=== PATIENT | female | born 1950 | race African-American/Black ===

== ENCOUNTER 2017-09-06 17:25 | Inpatient (IN) | payer MEDICARE, MEDICAID ==
[2017-09-06 18:31] LABS: #Eosinphils 0.1 thou/uL (0.0-0.7); #Lymphocytes 0.8 thou/uL (1.20-3.40); #Monocytes 0.3 thou/uL (0.11-0.59); #Neutrophils 0.9 thou/uL (1.40-6.50); %Basophils 1.2 % (0.0-1.0); %Eosinophils 3.2 % (0.0-10.0); %Lymphocytes 38.2 % (21.0-51.0); %Monocytes 12.4 % (0.0-10.0); Hematocrit 33.3 % (36.0-47.0); Mean Platelet Volume 14.2 fL (7.4-10.4); Red Blood Cell (RBC) Count 4.11 mill/uL (4.20-5.40)
[2017-09-06 18:36] LABS: ALT (SGPT) 46 U/L (8-55); AST (SGOT) 69 U/L (5-34); Alkaline Phosphatase 240 U/L (40-150); Anion Gap 13 mmol/L (10-20); BUN (Urea Nitrogen) 60 mg/dL (9.8-20.1); Bilirubin, Total 0.5 mg/dL (0.2-1.2); CK (CPK) 82 U/L (29-168); Calc. Creatinine Clearance 0 mL/min (70-130); Calcium 9.8 mg/dL (7.8-10.44); Carbon Dioxide 25 mmol/L (23-31); Chloride 113 mmol/L (98-107); Estimated GFR-MDRD 14; Globulin 4.1 g/dL (2.4-3.5); Protein, Total 7.3 g/dL (6.0-8.3)
[2017-09-06 18:39] LABS: Troponin I Less than 0.010 ng/mL (< 0.028)
[2017-09-06 18:42] LABS: Anisocytosis MODERATE=16-30 cells (100X) (0-5/hpf); Elliptocytes SLIGHT = 2-5 cells (100X) (0-1/hpf); Hypochromia SLIGHT = 6-15 cells (100X) (0-5/hpf); Ovalocytes SLIGHT = 2-5 cells (100X) (0-1/hpf); Poikilocytosis SLIGHT = 6-15 cells (100X) (0-5/hpf); Polychromasia SLIGHT = 2-3 cells (100X) (0-2/hpf); Schistocytes SLIGHT = 2-5 cells (100X) (0-1/hpf); Target Cells MODERATE= 6-15 cells (100X) (0-1/hpf); Tear Drops SLIGHT = 2-5 cells (100X) (0-1/hpf)
--- NOTE | 2017-09-06 18:46 | CT ---
HEAD CT NONCONTRAST 09/06/17 INDICATION: Fall with head injury. FINDINGS: There is no evidence of intracranial hemorrhage, mass effect or midline shift. There is a frontal sca lp hematoma, moderate in volume. Comparison made to 09/14/15 exam. IMPRESSION: No acute intracranial hemorrhage or mass effect. Prominent left frontal scalp hematoma. POS: [facility]
--- NOTE | 2017-09-06 18:49 | CT ---
CERVICAL SPINE CT NONCONTRAST 09/06/17 INDICATION: Fall with neck injury and pain. FINDINGS: The craniocervical junction is intact. There is no evidence of acute traumatic subluxation or izaiah katelynn fracture. There is reversal of the normal cervical curvature with kyphosis centered at the mid t o lower cervical spine. There is the appearance of a segmentation anomaly at C5-6. No acute facet mal alignment or significant retropulsion of bone into the vertebral canal. IMPRESSION: No acute osseous abnormality of the cervical spine. There is multilevel degenerative change and chronic appearing findings within the cervical spine. Incidental mild ground glass opacity of the anterior right apex, of uncertain significance on the bas is of this exam. Correlate clinically. POS: [facility]
[2017-09-06 19:28] LABS: Lactic Acid - Sepsis 2.5 mmol/L (0.5-2.2)
--- NOTE | 2017-09-06 19:47 | RAD ---
RADIOGRAPH CHEST 1 VIEW: 09/06/17 HISTORY: 67-year-old female with altered mental status and generalized weakness. FINDINGS: There is cardiomegaly. The thoracic aorta is tortuous and ectatic. There is no evidence of air space density, pulmonary edema, or pneumothorax. The lateral costophrenic angles are sharp. IMPRESSION: 1) No acute pulmonary findings. 2) Cardiomegaly without congestive heart failure. 3) Ectasia of thoracic aorta. jerrell [] POS: [facility]
[2017-09-06 21:52] LABS: Troponin I Less than 0.010 ng/mL (< 0.028)
[2017-09-06] MEDS ORDERED: Acetaminophen 325 MG TAB PO PRN (22:20)
[2017-09-06] MEDS ORDERED: Ondansetron ODT 4 MG TAB SL PRN (22:20)
[2017-09-06] MEDS ORDERED: Ondansetron HCl/PF 4 MG/2 ML Vial IVP PRN (22:20)
[2017-09-06] MEDS ORDERED: Sodium Chloride 0.9% 1,000 ML IV SCH (22:20)
[2017-09-06 23:25] LABS: Oxyhemoglobin 95.5 % (94.0-97.0); Sodium 149 mmol/L (135-148)
[2017-09-06 23:26] LABS: Mode RA; Modified Allen's Test POSITIVE; Vent NO
[2017-09-06] MEDS ORDERED: Sodium Chloride 0.9% 500 ML IVPB SCH (23:30)
[2017-09-06] MEDS ORDERED: MEROPENEM 1 GM/50 ML 1 GM in Premix Bag 1 BAG IVPB SCH (23:59)
[2017-09-07] MEDS: Vancomycin HCl 1 GM in Premix Bag 1 BAG IVPB SCH ×2
[2017-09-07 00:12] LABS: Troponin I 0.011 ng/mL (< 0.028)
[2017-09-07] MEDS ORDERED: Hetastarch 6% 500 ML 500 ML IVPB SCH (00:30)
--- NOTE | 2017-09-07 00:52 | PDOC.EVN ---
Event Note - Event Note Event Note: [id number] H&P Dictated 1. Sepsis 2. Hypotension 3. Hepatic encephalopathy 4. LYNDA + CKD stage 3 4. Hyperkalemia plan: see orders
[2017-09-07] MEDS: MEROPENEM 1 GM/50 ML 1 GM in Premix Bag 1 BAG IVPB SCH ×2 (03:23→15:08)
[2017-09-07 05:11] LABS: Anion Gap 9 mmol/L (10-20); BUN (Urea Nitrogen) 60 mg/dL (9.8-20.1); Calc. Creatinine Clearance 23 mL/min (70-130); Calcium 8.5 mg/dL (7.8-10.44); Carbon Dioxide 25 mmol/L (23-31); Chloride 120 mmol/L (98-107); Estimated GFR-MDRD 15
[2017-09-07 05:17] LABS: Troponin I Less than 0.010 ng/mL (< 0.028)
[2017-09-07 05:43] LABS: Band 20 % (5-11); Hematocrit 24.4 % (36.0-47.0); Hypochromia SLIGHT = 6-15 cells (100X) (0-5/hpf); Mean Platelet Volume 11.5 fL (7.4-10.4); Neutrophil 52 % (42-75); Red Blood Cell (RBC) Count 3.01 mill/uL (4.20-5.40); Target Cells SLIGHT = 2-5 cells (100X) (0-1/hpf); White Blood Cell (WBC) Count 1.8 thou/uL (4.8-10.8)
[2017-09-07] MEDS ORDERED: Dextrose 5% in Water 1,000 ML IV PRN (05:50)
[2017-09-07] MEDS ORDERED: Dextrose 50% Abboject 50 ML SYRINGE IVP PRN (05:50)
[2017-09-07] MEDS ORDERED: Dextrose 5% in Water 1,000 ML IV SCH (06:00)
[2017-09-07] MEDS ORDERED: Dextrose 5% in Water 500 ML IV SCH (06:15)
--- NOTE | 2017-09-07 08:13 | HP ---
CHIEF COMPLAINT: Confusion. HISTORY OF PRESENT ILLNESS: The patient is a 67-year-old female with past medical history of CHF, diabetes mellitus type 2, hypertension, nonalcoholic steatosis, asthma, discoid lupus and esophageal varices who initially came to the ER because of altered mental status and confusion. History is obtained from the ICU nurse as the patient is currently lethargic. The patient was found to be confused, so the patient was diagnosed having hepatic encephalopathy and admitted to the ICU and upon arrival to the ICU, the patient was hypothermic and also hypotensive, so patient was given fluid bolus and placed on Raffy Hugger. The patient's temperature started improving, but blood pressure is still on the low side. The patient is lethargic, so not able to give much history. PAST MEDICAL HISTORY: As per HPI. PAST SURGICAL HISTORY: Per records, positive for tubal ligation and cataract removal. SOCIAL HISTORY: Unavailable from the patient as the patient is currently lethargic. ALLERGIES: No known drug allergies. FAMILY HISTORY: Unavailable from the patient as the patient is currently lethargic. PHYSICAL EXAMINATION: CONSTITUTIONAL/VITAL SIGNS: At the time of H&P performed, blood pressure is 88/ 42, heart rate 66 and pulse ox 100%. GENERAL: The patient appears lethargic, but arousable. HEENT: Anterior nare patent. Nose normal. Pupils are sluggish to react. NECK: Supple. No JVD. CARDIOVASCULAR: S1 and S2 present. Regular rate and rhythm. No murmurs, no rubs, no gallops. RESPIRATORY SYSTEM: No wheezing, no rhonchi. Breath sounds bilaterally. GASTROINTESTINAL: Abdomen is soft and nontender. No guarding, no organomegaly , no masses felt. MUSCULOSKELETAL: Positive for edema. CRANIAL NERVOUS SYSTEM: Lethargic, but arousable and follows some commands. PSYCHIATRIC: Mood is lethargic at this time. Not able to assess. INTEGUMENTARY: Positive for chronic skin changes and bilateral lower extremities. Positive for healing wound seen. LABORATORY DATA: At the time of H&P performed, white count 2, hemoglobin 10, platelet count is 86 and monocytes 12.4. ABG showed pH of 7.38, pCO2 of 41.6 and pO2 of 86.8. BMP showed sodium of 146, CO2 of 25, potassium is 5.4, chloride 113, creatinine 3.89, CK-MB 8.8 and troponin less than 0.010. ASSESSMENT AND PLAN: The patient is 67-year-old female. 1. Hepatic encephalopathy. The patient's ammonia level is 88. Plan is to start patient on lactulose 30 grams p.o. q.2 hours until bowel movements. We will consult GI to evaluate the patient. 2. Hypekalemia plus acute kidney injury with chronic kidney disease stage 3. Baseline creatinine is around 1.5-2, creatinine worsening. Plan to place a Yost catheter. Continue IV fluids. Monitor the potassium level closely. We will check BMP now and we will hold off Kayexalate. The patient is already getting lactulose. 3. Hypotension, sepsis. Plan is to start the patient on broad-spectrum antibiotics. Plan to do blood cultures and urine culture and sensitivity. Repeat BMP, repeat Contin a.m. and monitor blood pressure closely. 4. Hypotension. Continue IV fluids. We will monitor blood pressure. If blood pressure does not improve, we will consult Anesthesia for possible central line placement and start vasopressors. We will transfer patient to ICU for critical and we will notify ICU attending for critical care management. 5. History of diabetes type 2, monitor blood sugars with insulin sliding scale. The case was discussed in detail with the patient and also ICU nurse. ELEUTERIO
[2017-09-07 10:34] LABS: Troponin I 0.016 ng/mL (< 0.028)
[2017-09-07] MEDS ORDERED: Dextrose 5 % And 0.9 % NaCl 1,000 ML IV SCH (13:15)
--- NOTE | 2017-09-07 13:26 | RAD ---
SUPINE ABDOMEN: HISTORY: Assess NG tube placement. FINDINGS/IMPRESSION: A Dobbhoff tube has been placed. The tip overlies the region of the gastric antrum and appears in ad equate position. POS: [facility]
[2017-09-07] MEDS: Albumin 25% 25 GM/100 ML BOT IVPB SCH ×2 (13:27→21:25)
[2017-09-07] MEDS: Dextrose 5 %-0.45 % NaCl 1,000 ML IV SCH (14:08)
--- NOTE | 2017-09-07 14:43 | CON ---
DATE OF CONSULTATION: 09/07/2017 HISTORY OF PRESENT ILLNESS: Rambo Souza is a 67-year-old unfortunate female with end-stage liver disease, cirrhosis secondary to fatty liver, nondrinker, and nonsmoker. I spoke to her daughter by phone who normally takes care of her. She is living with apparently boyfriend and uncle. Nurse come s 3 times a week to take care of. Yesterday, she was confused, apparently fell, has had multiple fal ls in the past including 07/30/2017, found to have a hematoma in the left frontal area. Face appeare d to be somewhat bruised. Presently, she is not able to give any history. She appears to be encepha lopathic. PAST MEDICAL HISTORY: As per daughter includes cirrhosis, GI bleed, diabetes, CHF, and hypertension. Apparently, some kind of chronic lung disease. The daughter says she does not smoke. PAST SURGICAL HISTORY: Included previous multiple endoscopies, tubal ligation, and cataracts. She has severe limitation to activity at home according to family members. REVIEW OF SYSTEMS: Otherwise, unobtainable. MEDICATIONS: From home includes lactulose twice a daily, Prozac 10, aspirin, allopurinol 100, Aldac tone 50, Rifaximin twice a day, Protonix 40, vitamin, albuterol, Lasix 40, colchicine, Coreg 3.125. Now she was started on lactulose, vancomycin, meropenem, and IV fluids. Blood sugar was low. PHYSICAL EXAMINATION: VITAL SIGNS: Blood pressure 90/80, pulse 80, respirations 18. HEENT: Large hematoma in the left frontal area. Face appears to be ecchymotic. CHEST: Reveals bilateral rhonchi. CARDIAC: Normal S1, S2. No gallops. ABDOMEN: Soft. No masses. LABORATORY DATA: Shows multiple abnormalities. LABORATORY DATA: Shows multiple abnormalities. White count 1.8, hemoglobin and hematocrit 7 and 24, platelet count 56, 52 segs and 20 bands. PO2 was 86, pCO2 41, pH 7.38 on room air. BUN and creatin ine are 60 and 3.74, glucose of 34 and 154 right now. Lactic acid is 2. Chest x-ray was normal. CT of the brain and neck were normal. IMPRESSION: 1. Metabolic encephalopathy secondary to endstage cirrhosis. 2. Acute renal failure. 3. Severe thrombocytopenia, anemia. 4. Possibly sepsis. 5. Renal failure. PLAN: Continue broad-spectrum antibiotics until her cultures are back. We will deescalate at that t christiano. I spoke to her daughter at length who is to come to the hospital. She wants to be made a DNR. Await GI input. Maintain blood pressure and urine output. I agree with lactulose. Will follow. Forty-five minutes critical care time.
[2017-09-07] MEDS: Rifaximin 550 MG TAB PER TUBE SCH (20:21)
--- NOTE | 2017-09-07 20:25 | CON ---
DATE OF CONSULTATION: 09/07/2017 REASON FOR CONSULTATION: Hepatic encephalopathy. HISTORY OF PRESENT ILLNESS: Ms. Souza is a 67-year-old female, well known to me from previous diagno sis of nonalcoholic fatty liver disease with cirrhosis. This was diagnosed about 2014 when she had a CAT scan of the chest in the ER at [place] for possible pulmonary embolism and a nodular liver wa s noted. At that time, she also underwent upper and lower endoscopy with grade 2 varices. Her most recent endoscopy was in 2015, which again showed grade 2 varices and she is on carvedilol for prophyl axis for that. She has never had bleeding. She has had some problems with hepatic encephalopathy an d had been on Xifaxan in the outpatient setting and had serial screenings for hepatoma, which have be en negative. I last saw her here in the hospital in 09/2016 when she was here for anemia and was fou nd to have vaginal bleeding. She was going to have a partial hysterectomy but gynecology decided rogelio t she was too ill from a cirrhotic standpoint and decided not to proceed with that. No clear diagnos is made in the patient. The patient's daughter, who is her primary office asst and usually takes her t o my office, notes that in the past several months she has seen the doctor several times. She has ac tually had a transfusion at [facility] in [place] several months ago. They still see Christiana Foster for primary care, and she had been taking her Xifaxan. Apparently, she had been pretty funct ional, although getting around with a help of wheelchair, and on had been to the doctor to ook at some bruising in her eyes. She had fallen and hit her head a few weeks ago and was given anti biotics. Yesterday evening, apparently home health went by in the afternoon, she was confused and sl urring and 911 was summoned and she was brought to the hospital. She is living with her brother and has correction visits about 3-4 times a week and also she has multiple family members who check in on them as well. The patient cannot give any history, but ther e have been no recent complaints of dysuria or fever or history of hematemesis or vomiting or melena. Here her blood pressures has been systolic in the 90s with a pulse in the 80s-90s and a temperature of 97, initially hypotensive on presentation. She is urinating per the nursing reports. She is pro bably dehydrated with baseline hemoglobin 8, hemoglobin was 10 on admission, is 7.6 this morning, but there have been no signs of bleeding. Renal function is worse than baseline with a creatinine of 3. 7, it was 3.8 yesterday, but it was 1.[address] Griffith has talked to the patient's family today about code status and they have decided to stay aggressive with medical therapy, but not to in tubate if it were to come to that, and definitely not to perform any CPR. PAST MEDICAL HISTORY: 1. Nonalcoholic fatty liver disease with cirrhosis. 2. Grade 2 varices. 3. History of vaginal bleeding of unclear etiology. She has been evaluated by Gynecology and initia lly a partial hysterectomy was recommended, but this was not pursued because of her illness. 4. Recent decrease in functional status from multiple falls. 5. History of hepatic encephalopathy. 6. Type 2 diabetes. 7. Congestive heart failure. 8. Lymphedema. 9. Osteoarthritis. 10. Discoid lupus. PAST SURGICAL HISTORY: Tubal ligation, cataract surgery, colonoscopy 2014 normal, esophagogastroduod enoscopy 08/2016 with grade 2 varices. MEDICATIONS AT HOME: Insulin, lactulose, ferrous sulfate, fluoxetine, aspirin 81 mg daily, allopurin ol, Aldactone 50 mg daily, rifaximin 550 b.i.d., Protonix 40 mg daily, multivitamin, albuterol, furos emide 40 mg b.i.d., Colcrys, carvedilol 3.125 mg b.i.d. PRESENT MEDICATIONS: Here, dextrose 50, albuterol, Tylenol p.r.n., D5W 50, Zofran p.r.n., rifaximin 550 p.o. b.i.d., vancomycin, and meropenem. The patient received some lactulose, last dose was at 2: 00 a.m. She has had about 2 bowel movements. PHYSICAL EXAMINATION: VITAL SIGNS: Blood pressure 93/53, pulse is 90, temperature is 98, respirations 16. GENERAL: Patient is somnolent. She will moan to stimuli, opens her eyes to commands a little bit. She has got bruising on her face and forehead from fall. HEENT: Conjunctivae and sclerae are clear. Oropharynx without lesions. NECK: Supple without adenopathy. LUNGS: Clear. ABDOMEN: Soft, slightly protuberant. There is no rebound. There is no guarding. There is slight s hifting dullness and dullness to percussion. EXTREMITIES: Rule out edema. LABORATORY STUDIES: Sodium 149, potassium 4.8, chloride 120, BUN and creatinine are 60 and 3.74. Gl ucose was 34, the patient was given D50, previous it was 139. Calcium 8.5. Troponins negative. Lac tic acid 2.5, AST 69, ALT 46, alkaline phosphatase 249, albumin 3.2. INR was 1.5 on admission. Whit e count 1.8, hemoglobin 7.6, platelet count 56,000. CT scan of the brain showed no evidence of intra cranial bleeding. Ammonia 88. ASSESSMENT: 1. Hepatic encephalopathy. It is unclear if the underlying infection has caused this or she is just dehydrated. She has got some lactulose earlier, and needs to resumed on q.2 hours until she has 4 b owel movements. We will start her Xifaxan and she has Dobbhoff tube in place, we can give these thro ugh. Infection is being treated for empirically. Blood culture, no growth to date. Urinalysis was not performed on admission. She has not had a chest x-ray. 2. Cirrhosis. She has been pretty functional with mild encephalopathy and some edema problems. The past several years, she has been fairly stable. She has had no variceal bleeding. She was due for hepatoma screening. 3. Acute renal failure. She probably is dry , but she could have hepatorenal syndrome. With regard to this, we will start her on some IV fluids, half normal saline, her elevated saline is probably pr erenal and related to hypovolemic hypernatremia. We will also give her albumin if she does not have improvement, and if renal function is worsening, we can add . I agree with broad-spectrum antib iotics CONDITION: Guarded. She is clinically ill. I had a long discussion with the patient's family and all are in agreement th at if she would have decompensation or worsening, they did not want her to go on a ventilator or have CPR and I think that is a reasonable course.
[2017-09-08 00:51] LABS: Vancomycin, Trough 9.2 ug/mL
[2017-09-08] MEDS: Vancomycin HCl 1 GM in Premix Bag 1 BAG IVPB SCH (01:24)
[2017-09-08] MEDS: Dextrose 5 %-0.45 % NaCl 1,000 ML IV SCH ×2 (03:47→14:51)
[2017-09-08] MEDS: MEROPENEM 1 GM/50 ML 1 GM in Premix Bag 1 BAG IVPB SCH ×2 (03:47→14:51)
[2017-09-08 04:25] LABS: ALT (SGPT) 31 U/L (8-55); AST (SGOT) 41 U/L (5-34); Alkaline Phosphatase 194 U/L (40-150); Anion Gap 10 mmol/L (10-20); BUN (Urea Nitrogen) 55 mg/dL (9.8-20.1); Bilirubin, Total 0.3 mg/dL (0.2-1.2); Calc. Creatinine Clearance 20 mL/min (70-130); Calcium 9.2 mg/dL (7.8-10.44); Carbon Dioxide 20 mmol/L (23-31); Chloride 122 mmol/L (98-107); Estimated GFR-MDRD 12; Globulin 2.7 g/dL (2.4-3.5); Magnesium 2.5 mg/dL (1.6-2.6); Protein, Total 5.5 g/dL (6.0-8.3)
[2017-09-08 05:51] LABS: Band 3 % (5-11); Hematocrit 22.8 % (36.0-47.0); Hypochromia SLIGHT = 6-15 cells (100X) (0-5/hpf); Mean Platelet Volume 12.5 fL (7.4-10.4); Microcytosis SLIGHT = 6-15 cells (100X) (0-5/hpf); Neutrophil 62 % (42-75); Ovalocytes SLIGHT = 2-5 cells (100X) (0-1/hpf); Red Blood Cell (RBC) Count 2.86 mill/uL (4.20-5.40); Tear Drops SLIGHT = 2-5 cells (100X) (0-1/hpf); White Blood Cell (WBC) Count 2.6 thou/uL (4.8-10.8)
[2017-09-08] MEDS: Albumin 25% 25 GM/100 ML BOT IVPB SCH ×2 (06:11→23:50)
[2017-09-08] MEDS: Rifaximin 550 MG TAB PER TUBE SCH ×2 (09:02→20:06)
--- NOTE | 2017-09-08 12:29 | PDOC.PN ---
- Subjective Encounter Start Date: 09/08/17 Encounter Start Time: 09:15 -: non-verbal Pt opens eyes readily to verbal stimuli, but quickly goes back to sleep and doesnt respond no F/c, no N/V/C, loose BMs overnight due to lactulose. No other acute events. Seen by GI - Objective Resuscitation Status: Resuscitation Status DNR:Do Not Resuscitate MAR Reviewed: Yes Vital Signs & Weight: Vital Signs (12 hours) Temp Pulse Resp Pulse Ox 09/08/17 12:00 97.8 F 09/08/17 08:00 97.6 F 89 23 H 100 09/08/17 06:41 92 22 H 100 Weight Admit Weight 228 lb Weight 229 lb 15.074 oz Most Recent Monitor Data Heart Rate from ECG 91 NIBP 120/73 NIBP BP-Mean 87 Respiration from ECG 24 SpO2 100 I&O: 09/07/17 09/08/17 09/09/17 06:59 06:59 06:59 Intake Total 1280 2040 Output Total 110 1850 402 Balance 1170 190 -402 Result Diagrams: 09/08/17 03:41 09/08/17 03:41 Additional Labs: Accuchecks 09/08/17 09/08/17 09/07/17 11:05 06:11 20:22 POC Glucose 84 81 90 09/07/17 15:13 POC Glucose 76 Radiology Reviewed by me: Yes EKG Reviewed by me: Yes Phys Exam - Physical Examination Constitutional: NAD HEENT: PERRLA, moist MMs, sclera anicteric, oral pharynx no lesions Neck: no nodes, supple, full ROM 6cm JVD Respiratory: no wheezing, no rales, no rhonchi, clear to auscultation bilateral Cardiovascular: RRR, no rub 3/6 HSM apex Gastrointestinal: soft, non-tender distended Musculoskeletal: edema present Neurological: moves all 4 limbs Lymphatic: no nodes Deviation from normal: sedate, arousable, but unresponsive Skin: no rash, normal turgor, cap refill <2 seconds Dx/Plan (1) Hepatic encephalopathy Code(s): K72.90 - HEPATIC FAILURE, UNSPECIFIED WITHOUT COMA Status: Acute Comment: ammonia better today, GI on board, more arousable, but certainly not coherent (2) DM2 (diabetes mellitus, type 2) Status: Chronic Qualifiers: Diabetes mellitus complication status: with hyperglycemia Diabetes mellitus intermediate insulin use: without intermediate use Qualified Code(s): E11.65 - Type 2 diabetes mellitus with hyperglycemia Comment: JENNIFER bustos and SSI (3) CKD (chronic kidney disease) stage 3, GFR 30-59 ml/min Status: Chronic (4) HTN (hypertension) Code(s): I10 - ESSENTIAL (PRIMARY) HYPERTENSION Status: Chronic Qualifiers: Hypertension type: essential hypertension Qualified Code(s): I10 - Essential (primary) hypertension (5) Morbid obesity with BMI of 45.0-49.9, adult Code(s): E66.01 - MORBID (SEVERE) OBESITY DUE TO EXCESS CALORIES; Z68.42 - BODY MASS INDEX (BMI) 45.0-49.9, ADULT Status: Chronic (6) Non-alcoholic cirrhosis Status: Chronic (7) Nonalcoholic steatohepatitis (CERON) Code(s): K75.81 - NONALCOHOLIC STEATOHEPATITIS (CERON) Status: Chronic (8) Thrombocytopenia Code(s): D69.6 - THROMBOCYTOPENIA, UNSPECIFIED Status: Chronic (9) LYNDA (acute kidney injury) Code(s): N17.9 - ACUTE KIDNEY FAILURE, UNSPECIFIED Status: Acute Comment: 1.4x in ,now in the 3-4+ range. prerenal aoztemia vs hepatorenal syndrome. poor outcome likely - Plan * .
--- NOTE | 2017-09-08 16:21 | PRG ---
DATE OF SERVICE: 09/08/2017 SUBJECTIVE: Remains encephalopathic, more awake, moaning and groaning. OBJECTIVE: VITAL SIGNS: Sats 100% on 2 liters, pulse 92, blood pressure 190/68. I's and O's are 1280 in and 11 0 out. CHEST: Bilateral rhonchi. CARDIAC: Normal S1, S2. No gallops. ABDOMEN: Distended. LABORATORY: White count 2.6, H&H 7 and 22, platelet count is 34, left shift. Creatinine is 4.3, BUN 55. IMPRESSION: 1. Hepatic encephalopathy. 2. Renal failure. PLAN: Continue vancomycin with increasing renal failure. Continue meropenem adjusted for renal fail ure. Lactulose was prescribed. Supportive care. The patient is DNR.
[2017-09-08] MEDS: Famotidine/PF 20 mg/2ml Vial SLOW IVP SCH (20:06)
[2017-09-09] MEDS: MEROPENEM 1 GM/50 ML 1 GM in Premix Bag 1 BAG IVPB SCH ×2 (03:37→15:30)
[2017-09-09] MEDS: Dextrose 5 %-0.45 % NaCl 1,000 ML IV SCH ×2 (03:40→17:32)
[2017-09-09 04:32] LABS: #Eosinphils 0.1 thou/uL (0.0-0.7); #Lymphocytes 0.8 thou/uL (1.20-3.40); #Monocytes 0.4 thou/uL (0.11-0.59); #Neutrophils 1.4 thou/uL (1.40-6.50); %Basophils 1.3 % (0.0-1.0); %Eosinophils 3.3 % (0.0-10.0); %Lymphocytes 30.3 % (21.0-51.0); %Monocytes 13.1 % (0.0-10.0); Hematocrit 25.3 % (36.0-47.0); Mean Platelet Volume 7.5 fL (7.4-10.4); Red Blood Cell (RBC) Count 3.14 mill/uL (4.20-5.40); White Blood Cell (WBC) Count 2.7 thou/uL (4.8-10.8)
[2017-09-09 04:41] LABS: ALT (SGPT) 31 U/L (8-55); AST (SGOT) 44 U/L (5-34); Alkaline Phosphatase 209 U/L (40-150); Anion Gap 11 mmol/L (10-20); BUN (Urea Nitrogen) 45 mg/dL (9.8-20.1); Bilirubin, Total 0.5 mg/dL (0.2-1.2); Calc. Creatinine Clearance 24 mL/min (70-130); Calcium 9.5 mg/dL (7.8-10.44); Carbon Dioxide 17 mmol/L (23-31); Chloride 125 mmol/L (98-107); Estimated GFR-MDRD 15; Magnesium 2.7 mg/dL (1.6-2.6); Protein, Total 6.3 g/dL (6.0-8.3)
[2017-09-09] MEDS: Albumin 25% 25 GM/100 ML BOT IVPB SCH ×2 (05:57→15:31)
--- NOTE | 2017-09-09 06:30 | PRG ---
DATE OF SERVICE: 09/08/2017 SUBJECTIVE: Ms. Souza is waking up. She will answer simple questions like how are you doing, tells her name. She still likes to keep her eyes closed, but she does open them on command, follow some si mple commands. MEDICATIONS: Albumin 25 grams IV q. 8 hours, DuoNeb, D5 half normal saline 75 an hour, lactulose t.i .d. adjusted to a goal of 3-5 bowel movements a day, meropenem, rifaximin 550 b.i.d. PHYSICAL EXAMINATION: VITAL SIGNS: Temperature 97.5 stable, pulse 88, blood pressure 112/66. Urine output Yost 1050 yest erday, 724 so far today. Weight was 229 today, 228 yesterday. SKIN: She is edematous throughout. She has got some bruising and ecchymoses on her face. She got a raised bruise on her forehead. LABORATORY STUDIES: White count 2.6, hemoglobin 7.2, platelet count 34,000. Sodium 147, potassium 4 .6, BUN and creatinine are 55 and 4.32 up from 50 and 3.74 yesterday, AST and ALT are 41 and 31, day line phosphatase 194, albumin is 2.5. Alpha-fetoprotein is pending. Ammonia down to 64. ASSESSMENT: 1. Hepatic encephalopathy, improving. 2. Blood cultures pending. Urinalysis negative, on empiric treatment for possible spontaneous bacte rial peritonitis. 3. Cirrhosis secondary to fatty liver, nonalcohol related, progressive decline in functional status recently. 4. History of vaginal bleeding of unclear etiology. The patient was recommended to have a subtotal hysterectomy, but was not medically stable from a standpoint of cirrhosis to do so. RECOMMENDATIONS: 1. Await alpha-fetoprotein. 2. Continue albumin. 3. Continue lactulose; adjust for goal of 3-5 bowel movements a day. 4. Continue Xifaxan. 5. Ulcer prophylaxis with H2 uriel. We will continue to follow with you.
--- NOTE | 2017-09-09 08:15 | RAD ---
1 VIEW ABDOMEN: D ate: 09/09/17 HISTORY: Dobbhoff feeding tube placement. COMPARISON: 09/07/17. FINDINGS: Portable upright 1 view abdomen demonstrates a Dobbhoff feeding tube which appears to be in the right lower lobe bronchi. X-ray tech states that the tube was removed after x-ray was taken. IMPRESSION: Dobbhoff feeding tube as above. CODE T. POS: [facility]
[2017-09-09] MEDS: Famotidine/PF 20 mg/2ml Vial SLOW IVP SCH ×2 (09:29→21:04)
--- NOTE | 2017-09-09 10:36 | PRG ---
DATE OF SERVICE: 09/09/2017 SUBJECTIVE: Rambo Souza appears to be quite responsive. The patient's Dobbhoff tube was apparently in the lung which was removed. She appears to be less encephalopathic this morning, at least answer s some questions. OBJECTIVE: VITAL SIGNS: Temperature is 97, sats 100%, blood pressure 154/87, respirations 18. CHEST: No wheezing. CARDIAC: Normal S1, S2, no gallops. ABDOMEN: Soft. LABORATORY DATA: White count was 2.7, H and H is 8 and 25, platelet count is low. IMPRESSION: 1. End-stage liver disease. 2. Severe thrombocytopenia. 3. Encephalopathy. 4. Morbid obesity. He was a DNR as per his family's wishes. She is little bit more responsive. We will continue lactul ose, antibiotics, diet, nutrition, PT.
[2017-09-09] MEDS ORDERED: Lorazepam 2 MG/ML VIAL ONE (10:40)
[2017-09-09] MEDS: Rifaximin 550 MG TAB PER TUBE SCH ×2 (12:25→21:02)
[2017-09-09] MEDS ORDERED: Lorazepam 2 MG/ML VIAL SLOW IVP SCH (12:30)
--- NOTE | 2017-09-09 12:35 | PRG ---
DATE OF SERVICE: 09/09/2017 Ms. Souza pulled her Dobbhoff tube out last night, but has not gotten it back yet. It was replaced a nd the positioning was checked with a KUB. She still is pretty sleepy, but she opens her eyes on com tre. She moves all 4 extremities to command. She answers simple yes/no questions; however, when as ked the date, she says she thinks it is June, I told her it was the week before [place]. PRESENT MEDICATIONS: Albumin 25 grams IV q.8h., D5 half normal at 75, Pepcid, glucagon, lactulose t. i.d., meropenem, rifaximin 550 b.i.d. PHYSICAL EXAMINATION: VITAL SIGNS: Temperature 97.4, pulse 89, blood pressure 147/86. LUNGS: Clear. HEART: Regular rate and rhythm. ABDOMEN: Soft, nontender. EXTREMITIES: No clubbing, cyanosis or edema. She still has a lot of edema in her face from her fall . LABORATORY STUDIES: White count is 2.7, hemoglobin 8.1, platelet count 29,000. Differential is norm al. INR was 1.5 on the 16th, magnesium 2.7, AST and ALT of 44 and 31, alkaline phosphatase 203, albu min 3.1. AFP was less than 2. Ammonia was not checked today, but yesterday it was 64. ASSESSMENT: 1. Renal function improving. I would continue the albumin IV for 1 more day until we start seeing a good improvement in renal function. 2. We will start tube feeds. 3. We will continue lactulose. I asked nurse to adjust it to 3-5 bowel movements a day, or if the r ectal tube is there to keep it less than a liter of stool output. We will recheck ammonia tomorrow. 4. Hopefully, if she is not having more mental clearing by tomorrow, I think we should look for othe r causes of encephalopathy as her ammonia is coming down. She has had a scan of her head which showe d no evidence of intracranial bleeding. IT may be worth looking for other viral illnesses. So far, there has been no signs of infection. We are going to get an ultrasound of her abdomen to make sure there is no liver mass.
--- NOTE | 2017-09-09 13:56 | PDOC.PN ---
- Subjective Encounter Start Date: 09/09/17 Encounter Start Time: 08:30 Pt more arousable, today, knows her name, and that she is at [facility]. no fever recorded, no acute events. rectal tube in place, pulled out her DFT overnight No F/C, no N/V. No CP or SOB, vitals have been stable Pt unable to give a ROS - Objective Resuscitation Status: Resuscitation Status DNR:Do Not Resuscitate MAR Reviewed: Yes Vital Signs & Weight: Vital Signs (12 hours) Temp Pulse Resp BP Pulse Ox 09/09/17 11:41 89 20 95 09/09/17 11:22 89 18 147/86 H 92 L 09/09/17 08:06 97.4 F L 09/09/17 08:00 97.4 F L 87 20 100 09/09/17 07:52 87 20 154/87 H 100 09/09/17 07:08 87 24 H 96 09/09/17 03:52 97.4 F L 87 16 144/83 H Weight Admit Weight 228 lb Weight 226 lb 10.163 oz Most Recent Monitor Data Heart Rate from ECG 92 NIBP 126/74 NIBP BP-Mean 87 Respiration from ECG 26 SpO2 100 I&O: 09/08/17 09/09/17 09/10/17 06:59 06:59 06:59 Intake Total 2040 1297 890 Output Total 1850 1782 1450 Balance 190 -485 -560 Result Diagrams: 09/09/17 03:22 09/09/17 03:22 Additional Labs: Accuchecks 09/09/17 09/09/17 09/08/17 10:56 06:28 20:39 POC Glucose 94 71 109 09/08/17 16:15 POC Glucose 86 Radiology Reviewed by me: Yes Phys Exam - Physical Examination Constitutional: NAD HEENT: PERRLA, moist MMs, sclera anicteric, oral pharynx no lesions Neck: no nodes, no JVD, supple, full ROM Respiratory: no wheezing, no rales, no rhonchi, clear to auscultation bilateral Cardiovascular: RRR, no significant murmur, no rub Gastrointestinal: soft, non-tender, no distention, positive bowel sounds Musculoskeletal: edema present Neurological: moves all 4 limbs Lymphatic: no nodes Deviation from normal: somnolent, arousable, Ox2, not to time Skin: no rash, normal turgor, cap refill <2 seconds Dx/Plan (1) Hepatic encephalopathy Code(s): K72.90 - HEPATIC FAILURE, UNSPECIFIED WITHOUT COMA Status: Acute Comment: ammonia better 09/08, GI on board, more arousable, but certainly not coherent. ammonia level in AM, recheck, if not at baseline, will contine to look for causes (2) DM2 (diabetes mellitus, type 2) Status: Chronic Qualifiers: Diabetes mellitus complication status: with hyperglycemia Diabetes mellitus detention insulin use: without detention use Qualified Code(s): E11.65 - Type 2 diabetes mellitus with hyperglycemia Comment: ACHS accuchecks and SSI (3) CKD (chronic kidney disease) stage 3, GFR 30-59 ml/min Status: Chronic (4) HTN (hypertension) Code(s): I10 - ESSENTIAL (PRIMARY) HYPERTENSION Status: Chronic Qualifiers: Hypertension type: essential hypertension Qualified Code(s): I10 - Essential (primary) hypertension (5) Morbid obesity with BMI of 45.0-49.9, adult Code(s): E66.01 - MORBID (SEVERE) OBESITY DUE TO EXCESS CALORIES; Z68.42 - BODY MASS INDEX (BMI) 45.0-49.9, ADULT Status: Chronic (6) Non-alcoholic cirrhosis Status: Chronic Comment: due to CERON (7) Nonalcoholic steatohepatitis (CERON) Code(s): K75.81 - NONALCOHOLIC STEATOHEPATITIS (CERON) Status: Chronic (8) Thrombocytopenia Code(s): D69.6 - THROMBOCYTOPENIA, UNSPECIFIED Status: Chronic Comment: due to cirrhosis, lower today. no signs of bleeding (9) LYNDA (acute kidney injury) Code(s): N17.9 - ACUTE KIDNEY FAILURE, UNSPECIFIED Status: Acute Comment: 1.4x in ,now in the 3-4+ range. prerenal aoztemia vs hepatorenal syndrome. poor outcome likely. Back from 4.x to 3.7 today - Plan cont current plan of care, carmen catheter, continue antibiotics * .
--- NOTE | 2017-09-09 15:01 | RAD ---
PORTABLE KUB: Date: 09-09-17 Comparison: 09-07-17 History: Evaluate Dobbhoff tube placement. FINDINGS: Supine imaging limits assessment for small bowel obstruction and free intraperitoneal air. The bowel gas pattern appears nonobstructed. Clips in the right upper quadrant suggests prior cholecystectomy. There is a Dobbhoff tube extending into the midline upper abdominal region, distal tip likely in the region of the gastric body. Age indeterminate fractures are suspected within the mid lumbar spine alex darnell degenerative change. If there are symptoms referable to the lumbar spine, radiograph advised. IMPRESSION: Dobbhoff tube extends into upper abdomen. Incidental findings as above. POS: [facility]
--- NOTE | 2017-09-09 17:44 | PQF ---
CLINICAL DOCUMENTATION IMPROVEMENT CLARIFICATION FORM: ICD-10 Updated PLEASE DO AN ADDENDUM TO THE PROGRESS NOTE WITH ANY DOCUMENTATION UPDATES OR ADDITIONS AND CARRY THROUGH TO DC SUMMARY. THANK YOU. DATE: 09/09/17 ATTN: Dr. Diaz Please exercise your independent, professional judgment in responding to the clarification form. Clinical indicators are provided on the bottom of this form for your review Please check appropriate box(s) to clarify if the following diagnosis has been ruled in our ruled out: ___ SEPSIS IN H&P . [ ] Ruled in diagnosis [ ] Continue to treat [ ] Resolved [ ] Ruled out diagnosis [ ] Cannot rule out diagnosis [ ] Other diagnosis [ ] Unable to determine In addition, please specify: Present on Admission (POA): [ ] Yes [ ] No [ ] Unable to determine For continuity of documentation, please document condition throughout progress notes and discharge summary. Thank You. CLINICAL INDICATORS - SIGNS / SYMPTOMS / LABS H&P: BP 88/42, HR 66 WHITE COUNT 2 HEPATIC ENCEPHALOPATHY LYNDA HYPOTENSION, SEPSIS. GI CONSULT: HEPATIC ENCEPHALOPATHY. IT IS UNCLEAR IF THE UNDERLYING INFECTION HAS CAUSED THIS OR SHE IS JUST DEHYDRATED. RISKS: H&P: HX OF DM 2, HTN, NONALCOHOLIC STEATOSIS. TREATMENT: ORDER 09/07: MEROPENEM 1 GM IV ORDER 09/06: IV VANCOMYCIN. DC'D 09/08 Thank you, Ivana (This form is maintained as a part of the permanent medical record) 2015 [employer]. All Rights Reserved ADDRESSED IN PN DATED 09/10/2017 MTDD
[2017-09-10] MEDS: MEROPENEM 1 GM/50 ML 1 GM in Premix Bag 1 BAG IVPB SCH ×2 (03:37→16:08)
[2017-09-10 04:58] LABS: Anion Gap 9 mmol/L (10-20); BUN (Urea Nitrogen) 36 mg/dL (9.8-20.1); Calc. Creatinine Clearance 26 mL/min (70-130); Carbon Dioxide 18 mmol/L (23-31); Estimated GFR-MDRD 17
[2017-09-10 05:00] LABS: Chloride 126 mmol/L (98-107)
[2017-09-10] MEDS: Dextrose 5 %-0.45 % NaCl 1,000 ML IV SCH ×2 (06:07→21:53)
[2017-09-10] MEDS: Rifaximin 550 MG TAB PER TUBE SCH ×2 (07:50→21:53)
[2017-09-10] MEDS: Famotidine/PF 20 mg/2ml Vial SLOW IVP SCH (08:28)
[2017-09-10 10:42] VITALS: BMI 41.4
--- NOTE | 2017-09-10 11:59 | PRG ---
DATE OF SERVICE: 09/10/2017 SUBJECTIVE: The patient remains encephalopathic. She opens her eyes more . OBJECTIVE: VITAL SIGNS: Blood pressure 144/78, sats 98% on 2 liters, temperature 98. I's and O's 1297 in and 1 782 out. CHEST: Decreased breath sounds, no wheezing. CARDIAC: Normal S1, S2, no gallops. ABDOMEN: Soft and distended. LABORATORY DATA: Creatinine 3.32, chloride 126. IMPRESSION: 1. Metabolic encephalopathy. 2. End-stage liver disease with metabolic encephalopathy. PLAN: Continue supportive care. She is a DNR. Lactulose. Discontinue antibiotics if cultures are negative.
--- NOTE | 2017-09-10 12:18 | PDOC.PN ---
- Subjective Encounter Start Date: 09/10/17 Encounter Start Time: 09:35 Pt somnolent, arousable briefly but falls back to sleep. Nursing called and reported pt was more awake at present, Ox3 to person, place and president. No acute events overnight. No F/c, no N/V, rectal tube in place for liquid stool from laculose. No cough or sOb overnight ROS not performed due to mental status - Objective Resuscitation Status: Resuscitation Status DNR:Do Not Resuscitate MAR Reviewed: Yes Vital Signs & Weight: Vital Signs (12 hours) Temp Pulse Resp BP Pulse Ox 09/10/17 11:42 96 18 96 09/10/17 08:00 98.0 F 97 18 09/10/17 07:49 98.0 F 97 18 144/78 H 93 L 09/10/17 06:27 93 20 99 Weight Admit Weight 228 lb Weight 226 lb 10.163 oz Most Recent Monitor Data Heart Rate from ECG 92 NIBP 126/74 NIBP BP-Mean 87 Respiration from ECG 26 SpO2 100 I&O: 09/09/17 09/10/17 09/11/17 06:59 06:59 06:59 Intake Total 1297 3040 Output Total 1782 2950 Balance -485 90 Result Diagrams: 09/09/17 03:22 09/10/17 04:14 Additional Labs: Accuchecks 09/10/17 09/10/17 09/09/17 11:06 04:24 20:28 POC Glucose 90 74 103 09/09/17 15:58 POC Glucose 91 Radiology Reviewed by me: Yes Phys Exam - Physical Examination Constitutional: NAD HEENT: PERRLA, moist MMs, sclera anicteric, oral pharynx no lesions Neck: no nodes, no JVD, supple Respiratory: no rales, no rhonchi, clear to auscultation bilateral Cardiovascular: RRR, no rub Gastrointestinal: soft, non-tender, positive bowel sounds Musculoskeletal: no edema, pulses present Neurological: non-focal Lymphatic: no nodes Deviation from normal: sleep but arousable during my viist, not verbal until now Skin: no rash, normal turgor, cap refill <2 seconds Deviation from normal: leg wounds healed well Dx/Plan (1) Hepatic encephalopathy Code(s): K72.90 - HEPATIC FAILURE, UNSPECIFIED WITHOUT COMA Status: Acute Comment: ammonia better 09/08, GI on board, more arousable, but certainly not coherent. Nursing reports better right now. NH3 down to 47, may be improving. will follow up with pt and GI this afternoon, CCM at present (2) DM2 (diabetes mellitus, type 2) Status: Chronic Qualifiers: Diabetes mellitus complication status: with hyperglycemia Diabetes mellitus supervisor intermediates insulin use: without supervisor intermediates use Qualified Code(s): E11.65 - Type 2 diabetes mellitus with hyperglycemia Comment: ACHS accuchecks and SSI (3) CKD (chronic kidney disease) stage 3, GFR 30-59 ml/min Status: Chronic (4) HTN (hypertension) Code(s): I10 - ESSENTIAL (PRIMARY) HYPERTENSION Status: Chronic Qualifiers: Hypertension type: essential hypertension Qualified Code(s): I10 - Essential (primary) hypertension (5) Morbid obesity with BMI of 45.0-49.9, adult Code(s): E66.01 - MORBID (SEVERE) OBESITY DUE TO EXCESS CALORIES; Z68.42 - BODY MASS INDEX (BMI) 45.0-49.9, ADULT Status: Chronic (6) Non-alcoholic cirrhosis Status: Chronic Comment: due to CERON (7) Nonalcoholic steatohepatitis (CERON) Code(s): K75.81 - NONALCOHOLIC STEATOHEPATITIS (CERON) Status: Chronic (8) Thrombocytopenia Code(s): D69.6 - THROMBOCYTOPENIA, UNSPECIFIED Status: Chronic Comment: due to cirrhosis, lower today. no signs of bleeding (9) LYNDA (acute kidney injury) Code(s): N17.9 - ACUTE KIDNEY FAILURE, UNSPECIFIED Status: Acute Comment: 1.4x in ,now in the 3-4+ range. prerenal aoztemia vs hepatorenal syndrome. poor outcome likely. Back from 4.x to 3.7 to 3.32 today (10) Sepsis with acute organ dysfunction Code(s): A41.9 - SEPSIS, UNSPECIFIED ORGANISM; R65.20 - SEVERE SEPSIS WITHOUT SEPTIC SHOCK Status: Acute Comment: not sepsis, rule dout. suspect hepatic encephalopathy and AMs with dehydration and LYNDA. No evidence of infection at this point. - Plan cont current plan of care, PT/OT * .
--- NOTE | 2017-09-10 22:37 | PRG ---
DATE OF SERVICE: 09/10/2017 SUBJECTIVE: Ms. Souza is more alert today, although she is still pretty somnolent, but when you wake her up, she will open her eyes bright. She knows her name, the date, where she is, and who the pres ident is. OBJECTIVE: VITAL SIGNS: Temperature is 98, pulse 97/96, O2 sat 93% and blood pressure 143/79. ABDOMEN: Soft and nontender, without palpable hepatosplenomegaly. EXTREMITIES: No clubbing, cyanosis or edema. LABORATORY DATA: White count 2.7, hemoglobin 8.1, platelet count is 29,000. Sodium 148, potassium 4 .7, chloride 126, bicarbonate 18, BUN 36 and creatinine 3.32. ASSESSMENT AND PLAN: 1. Creatinine continues to improve. She may have had SBP that was not ever diagnosed. She did not h ave a paracentesis. We will order ultrasound of the abdomen to see if she has any significant ascite s, otherwise I agree if her cultures are negative, blood cultures are negative another day, I would s top her antibiotics. If she remains more alert, we can get her NG tube out and let her start eating. 2. She needs physical therapy to start getting her out. 3. Titrate lactulose to 3-5 bowel movements a day.
[2017-09-11] MEDS: MEROPENEM 1 GM/50 ML 1 GM in Premix Bag 1 BAG IVPB SCH (03:24)
[2017-09-11 06:07] LABS: #Eosinphils 0.2 thou/uL (0.0-0.7); #Lymphocytes 0.9 thou/uL (1.20-3.40); #Monocytes 0.4 thou/uL (0.11-0.59); #Neutrophils 1.6 thou/uL (1.40-6.50); %Basophils 0.3 % (0.0-1.0); %Eosinophils 5.8 % (0.0-10.0); %Lymphocytes 27.9 % (21.0-51.0); Red Blood Cell (RBC) Count 3.46 mill/uL (4.20-5.40); White Blood Cell (WBC) Count 3.1 thou/uL (4.8-10.8)
[2017-09-11 06:19] LABS: Anion Gap 11 mmol/L (10-20); BUN (Urea Nitrogen) 29 mg/dL (9.8-20.1); Calc. Creatinine Clearance 29 mL/min (70-130); Calcium 9.6 mg/dL (7.8-10.44); Carbon Dioxide 16 mmol/L (23-31); Chloride 124 mmol/L (98-107); Estimated GFR-MDRD 19; Magnesium 2.3 mg/dL (1.6-2.6)
[2017-09-11] MEDS: Rifaximin 550 MG TAB PER TUBE SCH ×2 (08:35→20:00)
--- NOTE | 2017-09-11 12:02 | PRG ---
DATE OF SERVICE: 09/11/2017 Ms. Souza is awake, more responsive. PHYSICAL EXAMINATION: VITAL SIGNS: Sats 96%, temperature 97, blood pressure 133/81. She has still got a Dobbhoff. CHEST: Chest revealed decreased breath sounds, no wheezing. CARDIAC: Normal S1, S2. LABORATORY DATA: White count 3000, H&H 8 and 38, platelet count is 36, creatinine 2.9. IMPRESSION: 1. Hepatic encephalopathy, much improved. 2. Morbid obesity. 3. Respiratory failure. 4. dysphagia.dobhoff in place PLAN: She is still on meropenem. I suggest discontinuing the antibiotics. She is a DNR. Pulmonary Critical Care will follow at a distance. Please call if needed. ELEUTERIO
[2017-09-11] MEDS: Dextrose 5 %-0.45 % NaCl 1,000 ML IV SCH (12:27)
--- NOTE | 2017-09-11 15:07 | PDOC.PN ---
- Subjective Encounter Start Date: 09/11/17 Encounter Start Time: 10:00 Much more awake and alert. Thinks shes in [place], but knows date adn day, year , president, name. No F/C, no N/V/D/C, no CP ro SOB. Still with liquid stool. wants to eat 10 point ROs performed and neg for all systems except as per hPI - Objective Resuscitation Status: Resuscitation Status DNR:Do Not Resuscitate MAR Reviewed: Yes Vital Signs & Weight: Vital Signs (12 hours) Temp Pulse Resp BP Pulse Ox 09/11/17 08:00 98.2 F 99 20 115/65 98 09/11/17 06:44 95 18 98 Weight Admit Weight 228 lb Weight 226 lb 10.163 oz Most Recent Monitor Data Heart Rate from ECG 92 NIBP 126/74 NIBP BP-Mean 87 Respiration from ECG 26 SpO2 100 I&O: 09/10/17 09/11/17 09/12/17 06:59 06:59 06:59 Intake Total 3040 2900 Output Total 2950 2650 Balance 90 250 Result Diagrams: 09/11/17 04:00 09/11/17 04:00 Additional Labs: Accuchecks 09/11/17 09/11/17 09/10/17 11:39 05:41 20:26 POC Glucose 114 H 74 96 09/10/17 16:05 POC Glucose 88 Radiology Reviewed by me: Yes Phys Exam - Physical Examination Constitutional: NAD HEENT: PERRLA, moist MMs, sclera anicteric, oral pharynx no lesions hematoma to left forntal stable, ecchymosis to face stable Neck: no nodes, no JVD, supple, full ROM Respiratory: no wheezing, no rales, no rhonchi, clear to auscultation bilateral Cardiovascular: RRR, no significant murmur, no rub Gastrointestinal: soft, non-tender, positive bowel sounds Musculoskeletal: pulses present, edema present Neurological: non-focal, normal sensation, moves all 4 limbs Lymphatic: no nodes Psychiatric: normal affect, A&O x 3 Skin: no rash, normal turgor, cap refill <2 seconds Dx/Plan (1) Hepatic encephalopathy Code(s): K72.90 - HEPATIC FAILURE, UNSPECIFIED WITHOUT COMA Status: Acute Comment: ammonia better 09/08, GI on board, more arousable, but certainly not coherent. Nursing reports better right now. NH3 down to 47 then 29, and now very much awake and alert. Ox3. will follow up with pt and GI this afternoon, CCM at present. ST consult to eval swallowing for diet (2) DM2 (diabetes mellitus, type 2) Status: Chronic Qualifiers: Diabetes mellitus complication status: with hyperglycemia Diabetes mellitus alf insulin use: without alf use Qualified Code(s): E11.65 - Type 2 diabetes mellitus with hyperglycemia Comment: ACHS accuchecks and SSI (3) CKD (chronic kidney disease) stage 3, GFR 30-59 ml/min Status: Chronic (4) HTN (hypertension) Code(s): I10 - ESSENTIAL (PRIMARY) HYPERTENSION Status: Chronic Qualifiers: Hypertension type: essential hypertension Qualified Code(s): I10 - Essential (primary) hypertension (5) Morbid obesity with BMI of 45.0-49.9, adult Code(s): E66.01 - MORBID (SEVERE) OBESITY DUE TO EXCESS CALORIES; Z68.42 - BODY MASS INDEX (BMI) 45.0-49.9, ADULT Status: Chronic (6) Non-alcoholic cirrhosis Status: Chronic Comment: due to CERON (7) Nonalcoholic steatohepatitis (CERON) Code(s): K75.81 - NONALCOHOLIC STEATOHEPATITIS (CERON) Status: Chronic (8) Thrombocytopenia Code(s): D69.6 - THROMBOCYTOPENIA, UNSPECIFIED Status: Chronic Comment: due to cirrhosis, lower today. no signs of bleeding (9) LYNDA (acute kidney injury) Code(s): N17.9 - ACUTE KIDNEY FAILURE, UNSPECIFIED Status: Acute Comment: 1.4x in ,now in the 3-4+ range. prerenal aoztemia vs hepatorenal syndrome. poor outcome likely. Back from 4.x to 3.7 to 3.32 today (10) Sepsis with acute organ dysfunction Code(s): A41.9 - SEPSIS, UNSPECIFIED ORGANISM; R65.20 - SEVERE SEPSIS WITHOUT SEPTIC SHOCK Status: Acute Comment: not sepsis, ruled out. suspect hepatic encephalopathy and AMs with dehydration and LYNDA. No evidence of infection at this point. - Plan cont current plan of care, PT/OT, speech therapy * .
--- NOTE | 2017-09-11 22:38 | PRG ---
DATE OF SERVICE: 09/11/2017 SUBJECTIVE: Ms. Souza is awake. She is alert and oriented. Eyes are open when I came in the room t his morning. She talks. She is in no distress. She denies any pain. OBJECTIVE: VITAL SIGNS: Temperature is 98, pulse 99, respirations 18, blood pressure 115/65. ABDOMEN: Soft and nontender. LUNGS: Clear. LABORATORY STUDIES: White count 3.1, hemoglobin 8.8, platelet count 36,000. Sodium 146, potassium 5 .1. BUN and creatinine are 29 and 2.95, continued to improve. ASSESSMENT: 1. Empiric treatment for spontaneous bacterial peritonitis. The patient had her antibiotics discont inued yesterday. We will go ahead and get an ultrasound to make sure she does not have any obvious a scites that is tappable. 2. Renal failure, improved. 3. Severe encephalopathy, improved. She is alert and oriented. I think she can take p.o. now. RECOMMENDATIONS: 1. Discontinue Yost, discontinue rectal tube, discontinue Dobhoff feeding tube. 2. Start a regular soft diet, 2 gram sodium. 3. Await sonogram. 4. Continue to monitor renal function, and if she can tolerate p.o., we will stop the IV fluids.
[2017-09-12] MEDS: Dextrose 5 %-0.45 % NaCl 1,000 ML IV SCH (01:39)
[2017-09-12 05:58] LABS: Anion Gap 10 mmol/L (10-20); BUN (Urea Nitrogen) 21 mg/dL (9.8-20.1); Calc. Creatinine Clearance 37 mL/min (70-130); Calcium 9.4 mg/dL (7.8-10.44); Carbon Dioxide 15 mmol/L (23-31); Chloride 121 mmol/L (98-107); Estimated GFR-MDRD 25
[2017-09-12] MEDS: Rifaximin 550 MG TAB PER TUBE SCH ×2 (07:34→20:39)
--- NOTE | 2017-09-12 08:47 | ULT ---
HEPATIC ULTRASOUND WITH DUPLEX EVALUATION: Date: 09/12/17 INDICATION: History of cirrhosis. COMPARISON: Prior CTA of the thorax dated 09/26/14, hepatic duplex ultrasound dated 08/23/15, and a CT of the abd omen and pelvis without contrast dated 10/09/16. TECHNIQUE: Drew scale, color Doppler, and vascular duplex with spectral analysis was performed of the right uppe r quadrant of the abdomen and hepatic vasculature. FINDINGS: Exam detail is slightly limited due to overlying bowel gas. The hepatic vasculature demonstrated appropriate hepatopetal flow. Appropriate flow is seen within th e splenic artery and hepatic veins. The liver is slightly enlarged and lobulated. The liver measures up to 16.0 cm. Imaged detail limits evaluation for focal hepatic lesion, but no large gross abnormality is seen. The proximal abdominal aorta measured 2.6 cm. The gallbladder was not seen. The spleen is enlarged, measuring 13.0 cm. Common bile duct measured 5.1 mm. The right and left kidney were not well seen. Left kidney measured 10.0 cm in length and the right me asured 9.4 cm. A small focal hyperechoic lesion was seen within the anterior aspect of the spleen measuring up to 1. 6 cm, which in retrospect likely corresponds to an area of hypodensity on the noncontrast CT dated . This may reflect a small hemangioma. Continued follow-up is recommended. IMPRESSION: 1. Findings of cirrhosis with mild portal hypertension. 2. Appropriate hepatopetal flow is seen within the hepatic vasculature. 3. Small hyperechoic lesion seen within the anterior aspect of the spleen measuring up to 1.6 cm in retrospect and likely corresponds to small hypodense lesion seen on the noncontrast CT of abdomen and pelvis from September 2016. Recommend continued follow-up of this lesion. This is most suspicious for a small splenic hemangioma. 4. Some limitations of exam as above. POS: [facility]
--- NOTE | 2017-09-12 12:12 | PDOC.PN ---
- Subjective Encounter Start Date: 09/12/17 Encounter Start Time: 11:00 Pt up in chair. Family at bedside, pt A&O x 3, except that she believes she is in [place], not [place], and cannot be convinced otherwise. Wants to go home. Pt lives at home multiple family members live on same property. Up with PT yesterday, walked 46 feet,, per nursing better today. PT recommended SNF, pt doenst want to go anywhere but home. No F/c, no N/v, + diarrhea x 3 today already, no abd pain, no CP or sOB, no cough. levon regular diet - Objective Resuscitation Status: Resuscitation Status DNR:Do Not Resuscitate MAR Reviewed: Yes Vital Signs & Weight: Vital Signs (12 hours) Temp Pulse Resp BP Pulse Ox 09/12/17 08:00 97.5 F L 79 20 99 09/12/17 07:39 79 20 131/78 99 Weight Admit Weight 228 lb Weight 226 lb 10.163 oz Most Recent Monitor Data Heart Rate from ECG 92 NIBP 126/74 NIBP BP-Mean 87 Respiration from ECG 26 SpO2 100 I&O: 09/11/17 09/12/17 09/13/17 06:59 06:59 06:59 Intake Total 2900 360 Output Total 2650 1200 Balance 250 -840 Result Diagrams: 09/11/17 04:00 09/12/17 04:27 Additional Labs: Accuchecks 09/12/17 09/11/17 09/11/17 05:56 20:49 16:48 POC Glucose 97 88 101 Radiology Reviewed by me: Yes Phys Exam - Physical Examination Constitutional: NAD HEENT: PERRLA, moist MMs, oral pharynx no lesions forhead hematoma stable, ecchymosis stable R>L eye icterus present Neck: no nodes, no JVD, supple Respiratory: no wheezing, no rales, no rhonchi, clear to auscultation bilateral Cardiovascular: RRR, no significant murmur, no rub Gastrointestinal: soft, non-tender, no distention, positive bowel sounds Musculoskeletal: no edema, pulses present, edema present Neurological: non-focal, normal sensation, moves all 4 limbs Lymphatic: no nodes Psychiatric: normal affect, A&O x 3 Deviation from normal: except believes she is in [place], not [place] Skin: no rash, normal turgor, cap refill <2 seconds Dx/Plan (1) Hepatic encephalopathy Code(s): K72.90 - HEPATIC FAILURE, UNSPECIFIED WITHOUT COMA Status: Acute Comment: ammonia better 09/08, GI on board, more arousable, but certainly not coherent. Nursing reports better right now. NH3 down to 47 then 29, and now very much awake and alert. Ox3. will follow up with pt and GI this afternoon, CCM at present. ST consult to eval swallowing for diet (2) DM2 (diabetes mellitus, type 2) Status: Chronic Qualifiers: Diabetes mellitus complication status: with hyperglycemia Diabetes mellitus usp insulin use: without adjunct faculty for medical terminology use Qualified Code(s): E11.65 - Type 2 diabetes mellitus with hyperglycemia Comment: ACHS accuchecks and SSI (3) CKD (chronic kidney disease) stage 3, GFR 30-59 ml/min Status: Chronic (4) HTN (hypertension) Code(s): I10 - ESSENTIAL (PRIMARY) HYPERTENSION Status: Chronic Qualifiers: Hypertension type: essential hypertension Qualified Code(s): I10 - Essential (primary) hypertension (5) Morbid obesity with BMI of 45.0-49.9, adult Code(s): E66.01 - MORBID (SEVERE) OBESITY DUE TO EXCESS CALORIES; Z68.42 - BODY MASS INDEX (BMI) 45.0-49.9, ADULT Status: Chronic (6) Non-alcoholic cirrhosis Status: Chronic Comment: due to CERON (7) Nonalcoholic steatohepatitis (CERON) Code(s): K75.81 - NONALCOHOLIC STEATOHEPATITIS (CERON) Status: Chronic (8) Thrombocytopenia Code(s): D69.6 - THROMBOCYTOPENIA, UNSPECIFIED Status: Chronic Comment: due to cirrhosis, lower today. no signs of bleeding (9) LYNDA (acute kidney injury) Code(s): N17.9 - ACUTE KIDNEY FAILURE, UNSPECIFIED Status: Acute Comment: 1.4x in ,now in the 3-4+ range. prerenal aoztemia vs hepatorenal syndrome. poor outcome likely. Back from 4.x to 3.7 to 3.32 today (10) Sepsis with acute organ dysfunction Code(s): A41.9 - SEPSIS, UNSPECIFIED ORGANISM; R65.20 - SEVERE SEPSIS WITHOUT SEPTIC SHOCK Status: Acute Comment: not sepsis, ruled out. suspect hepatic encephalopathy and AMs with dehydration and LYNDA. No evidence of infection at this point. - Plan cont current plan of care, plan discussed w/ family, PT/OT, high school social studies teacher, out of bed/ambulate * .
--- NOTE | 2017-09-12 19:34 | PRG ---
DATE OF SERVICE: 09/12/2017 SUBJECTIVE: Ms. Souza is doing good. She has had a rectal tube out. She still has 3-4 bowel moveme nts a day. She is voiding on her own. She is eating, drinking. IV fluids were hep-lock. OBJECTIVE: VITAL SIGNS: Temperature is 97, pulse 79, blood pressure 131/78. ABDOMEN: Soft and nontender. LABORATORY STUDIES: Sodium 141, potassium 5.1, BUN and creatinine are 21 and 2.33, glucose 97-76. U ltrasound showed splenomegaly, no gallbladder, 5 mm common duct, cirrhotic liver, no gross masses, no portal venous clots, no overt ascites. ASSESSMENT: 1. Cirrhosis secondary to fatty liver with normal hepatoma screening with and ultrasound. 2. Admission with severe hepatic encephalopathy. It is unclear if she also had some infection, alth ough all cultures were negative on admission blood. Ultimately, urine was not checked. She was main tained for a few days on antibiotics. 2. Encephalopathy markedly improved with ammonia down to 30 or so and clinically, she is markedly im proved. She is alert and oriented. She is getting out more with physical therapist today. RECOMMENDATIONS: 1. Titrated lactulose to 2-3 bowel movements per day. Continue Xifaxan 550 b.i.d. 2. We will continue to hold diuretics for a few more days or renal function stabilizes. Advance t as tolerated. She will go home either with a short-term care and long term with home health. The patient's granddaughter is in the room, informed me that their mother is going to take her home with them for a few days when she gets out and she is well-versed in her medical care and has been h er primary ticket printer bringing to all of her appointments in [place] and here.
[2017-09-13 06:18] LABS: Anion Gap 11 mmol/L (10-20); BUN (Urea Nitrogen) 20 mg/dL (9.8-20.1); Calc. Creatinine Clearance 47 mL/min (70-130); Calcium 9.8 mg/dL (7.8-10.44); Carbon Dioxide 16 mmol/L (23-31); Chloride 116 mmol/L (98-107); Estimated GFR-MDRD 33
[2017-09-13] MEDS: Dextrose 5 %-0.45 % NaCl 1,000 ML IV SCH ×2 (07:06→17:21)
[2017-09-13 07:24] VITALS: BP 116/73
[2017-09-13 07:27] LABS: Hematocrit 29.7 % (36.0-47.0); Mean Platelet Volume 18.5 fL (7.4-10.4); Red Blood Cell (RBC) Count 3.67 mill/uL (4.20-5.40); White Blood Cell (WBC) Count 2.1 thou/uL (4.8-10.8)
[2017-09-13] MEDS: Rifaximin 550 MG TAB PER TUBE SCH (08:33)
[2017-09-13 09:02] LABS: #Eosinphils 0.3 thou/uL (0.0-0.7); #Lymphocytes 0.9 thou/uL (1.20-3.40); #Monocytes 0.3 thou/uL (0.11-0.59); #Neutrophils 0.7 thou/uL (1.40-6.50); %Basophils 0.6 % (0.0-1.0); %Eosinophils 12.5 % (0.0-10.0); %Lymphocytes 40.1 % (21.0-51.0); Band 5 % (5-11); Hypochromia SLIGHT = 6-15 cells (100X) (0-5/hpf); Neutrophil 39 % (42-75); Ovalocytes SLIGHT = 2-5 cells (100X) (0-1/hpf); Polychromasia SLIGHT = 2-3 cells (100X) (0-2/hpf)
[2017-09-13 10:14] VITALS: TEMP 97.5
--- NOTE | 2017-09-13 13:25 | PDOC.PN ---
- Subjective Encounter Start Date: 09/13/17 Encounter Start Time: 11:15 Pt sitting up on the side of the bed. A&O X 3, except insists shes in [place]. case management's note reviewed. to go home with daughter and [facility] home care when ready. GI note reviewed, laxctulose, Xifaxan, diuretics on hold, Cr improving. PT wanting to go home, will discuss timing iwth GI temperature 92 this morning, 95 later with [facility], 97+ now off. not sure what happened then. Pt denies any new problems 10 point ROS performed and neg for all systems except as per HPI - Objective Resuscitation Status: Resuscitation Status DNR:Do Not Resuscitate MAR Reviewed: Yes Vital Signs & Weight: Vital Signs (12 hours) Temp Pulse Resp BP Pulse Ox 09/13/17 12:30 97.5 F L 09/13/17 10:13 97.5 F L 09/13/17 09:58 94.2 F L 09/13/17 08:00 94.2 F L 71 22 H 09/13/17 07:21 71 22 H 116/73 99 09/13/17 05:20 92.1 F L Weight Admit Weight 228 lb Weight 226 lb 10.163 oz Most Recent Monitor Data Heart Rate from ECG 92 NIBP 126/74 NIBP BP-Mean 87 Respiration from ECG 26 SpO2 100 I&O: 09/12/17 09/13/17 09/14/17 06:59 06:59 06:59 Intake Total 360 720 Output Total 1200 Balance -840 720 Result Diagrams: 09/13/17 04:44 09/13/17 04:44 Additional Labs: Accuchecks 09/13/17 09/13/17 09/12/17 11:17 04:45 20:55 POC Glucose 87 63 L 86 09/12/17 09/12/17 16:29 04:31 POC Glucose 80 64 L Phys Exam - Physical Examination Constitutional: NAD HEENT: PERRLA, moist MMs, sclera anicteric, oral pharynx no lesions frontal hematoma and facial ecchymosis slowly improving Neck: no nodes, no JVD, supple, full ROM Respiratory: no wheezing, no rales, no rhonchi, clear to auscultation bilateral Cardiovascular: RRR, no significant murmur Gastrointestinal: soft, non-tender, no distention, positive bowel sounds Musculoskeletal: pulses present, edema present Neurological: non-focal, normal sensation, moves all 4 limbs Lymphatic: no nodes Psychiatric: normal affect, A&O x 3 Skin: no rash, normal turgor, cap refill <2 seconds Dx/Plan (1) Hepatic encephalopathy Code(s): K72.90 - HEPATIC FAILURE, UNSPECIFIED WITHOUT COMA Status: Acute Comment: ammonia better 09/08, GI on board, more arousable, but certainly not coherent. Nursing reports better right now. NH3 down to 47 then 29, and now very much awake and alert. Ox3. will follow up with pt and GI this afternoon, CCM at present. On regular diet now. home when cleared by GI (2) DM2 (diabetes mellitus, type 2) Status: Chronic Qualifiers: Diabetes mellitus complication status: with hyperglycemia Diabetes mellitus senior care insulin use: without senior care use Qualified Code(s): E11.65 - Type 2 diabetes mellitus with hyperglycemia Comment: ACHS accuchecks and SSI (3) CKD (chronic kidney disease) stage 3, GFR 30-59 ml/min Status: Chronic (4) HTN (hypertension) Code(s): I10 - ESSENTIAL (PRIMARY) HYPERTENSION Status: Chronic Qualifiers: Hypertension type: essential hypertension Qualified Code(s): I10 - Essential (primary) hypertension (5) Morbid obesity with BMI of 45.0-49.9, adult Code(s): E66.01 - MORBID (SEVERE) OBESITY DUE TO EXCESS CALORIES; Z68.42 - BODY MASS INDEX (BMI) 45.0-49.9, ADULT Status: Chronic (6) Non-alcoholic cirrhosis Status: Chronic Comment: due to CERON (7) Nonalcoholic steatohepatitis (CERON) Code(s): K75.81 - NONALCOHOLIC STEATOHEPATITIS (CERON) Status: Chronic (8) Thrombocytopenia Code(s): D69.6 - THROMBOCYTOPENIA, UNSPECIFIED Status: Chronic Comment: due to cirrhosis, lower today. no signs of bleeding (9) LYNDA (acute kidney injury) Code(s): N17.9 - ACUTE KIDNEY FAILURE, UNSPECIFIED Status: Acute Comment: 1.4x in ,now in the 3-4+ range. prerenal aoztemia vs hepatorenal syndrome. poor outcome likely. Back from 4.x to 1.85 today. Baseline around 1.6 (10) Sepsis with acute organ dysfunction Code(s): A41.9 - SEPSIS, UNSPECIFIED ORGANISM; R65.20 - SEVERE SEPSIS WITHOUT SEPTIC SHOCK Status: Ruled-out Comment: not sepsis, ruled out. suspect hepatic encephalopathy and AMs with dehydration and LYNDA. No evidence of infection at this point. - Plan cont current plan of care, PT/OT, out of bed/ambulate * . will discuss with GI, Dr Natarajan has been seeing
--- NOTE | 2017-09-13 15:44 | DIS ---
PRIMARY CARE PHYSICIAN: Dr. Fco Foster. LINSEED OIL ORDER FILLER: Dr. Delmar Natarajan. DATE OF ADMISSION: 09/06/2017 DATE OF DISCHARGE: 09/13/2017 DISCHARGE DIAGNOSES: 1. Hepatic encephalopathy. 2. Nonalcoholic steatohepatitis with cirrhosis. 3. Obesity. 4. Diabetes mellitus type 2 without known complications. 5. Metabolic encephalopathy. 6. Possible sepsis, ruled out during admission. 7. Obesity. 8. Recent fall with head trauma. CONSULTATIONS: 1. Pulmonary Critical Care, Dr. Butch Griffith on 09/07/2017. 2. Gastroenterology, Dr. Delmar Natarajan on 09/07/2017. PROCEDURES: 1. Echocardiogram on 09/06/2017 that showed EF of 60%-65%, mild MR and mild TR. 2. Abdominal ultrasound on 09/12/2017 that showed cirrhosis with mild portal hypertension, appropria te hepatopedal flow and a 1.6 cm hyperechoic lesion, likely a splenic hemangioma. HISTORY AND PHYSICAL: Ms. Souza is a 67-year-old female who lives near [place] and has the above diagnoses who presented to the Emergency Department for altered mental status, confusio n. She was found to be hypothermic, was placed in the [facility]. We were called for admission. S he was found to have elevated ammonia at 88, she was found to have an acute kidney injury on top of h er baseline chronic kidney disease stage 3 with worsening creatinine. She is also noted to be hypote nsive. HOSPITAL COURSE: The patient examined and admitted by Dr. Chong. She was started on broad spectr um antibiotics for possible sepsis and blood cultures were obtained. The patient was given IV fluids , she was continued on lactulose 30 grams p.o. every 2 hours until bowel movement started and GI was consulted. She was admitted in early hours of 09/07/2017. I was seen by Dr. Griffith and Dr. Natarajan that day and ag bright with current management. On 09/08/2017, her ammonia started to come down, but her mental status had not changed largely. She was respiratory stable and was transferred to the floor. By 7, the patient was more arousable, she knew her name and that she was at [facility], but was unable t o give any further history. She was continued on current management and rectal tube was continued at that time. By 09/10/2017, she was awake and alert and oriented x3. She was insistent that she was in [place] in stead of [place], but otherwise was completely oriented. She continued on lactulose. She started tube feed going, speech therapy was consulted to evaluate her swallowing. On 09/11/2017, she was back to her baseline per family. Speech therapy saw her and advanced to regul ar diet. Her swallowing was intact, her ammonia had normalized, and her labs remained normal. Creat inine continued to improve and was down to just above 2 at that point. On 09/12/2017, per family back to her normal self. Creatinine down to 2.33 and was otherwise ambulat ory with PT and OT. They did evaluate her and felt she was at significant fall risk, the patient ref used to go anywhere, but home with home care. By today 09/13/2017, her creatinine is down to 1.85. Mental status at the baseline, she is toleratin g her Xifaxan and her lactulose. She was cleared by GI for discharge with outpatient followup. PHYSICAL EXAMINATION: The patient was seen and examined on the day of discharge. Discharge plan and disposition were discussed with the patient [id number] at the bedside. DISCHARGE MEDICATIONS: 1. Albuterol sulfate HFA 2 puffs inhaled q.i.d. 2. Allopurinol 100 mg daily. 3. Aspirin 81 mg daily. 4. Coreg 3.125 mg p.o. b.i.d. 5. Iron sulfate 325 mg p.o. b.i.d. 6. Fluoxetine 10 mg p.o. daily. 7. Lantus 10 units subcu daily. 8. Lactulose 15 mL p.o. b.i.d. She is able to take both before noon, if she prefers. 9. Multivitamin daily. 10. Protonix 40 mg daily. 11. Xifaxan 550 mg p.o. b.i.d. 12. Aldactone 50 mg daily. 13. Systane drops p.r.n. 14. Triamcinolone topically b.i.d. Relates, she is on hold at present, and her colchicine was on hold for now. FOLLOWUP APPOINTMENTS: 1. Primary care physician, Dr. Foster in a week. 2. Dr. Natarajan in 1-2 weeks or one of his colleagues. DISCHARGE DIET: Diabetic, heart healthy recommended. DISCHARGE ACTIVITY: As tolerated. Home care with PT and OT with [facility]. Home care has been ordered. DISCHARGE CONDITION: Stable. DISPOSITION: Being discharged home via private vehicle. She is going to go to her daughter's house for the next several days with home care until she is more steady.
== END 2017-09-13 17:52 | disposition home health service (06) | DRG 441 ==
LOC: ERS 17:25 → IMCU/EMU 20:21 → CCU 09-07 01:06 → T4-A 09-08 21:19
PROVIDERS: ADMIT Internal Medicine; ATTEND Internal Medicine
DX: K72.90 Hepatic failure, unspecified without coma (principal); K65.2 Spontaneous bacterial peritonitis; J96.90 Respiratory failure, unspecified, unspecified whether with hypoxia or hypercapnia; N17.9 Acute kidney failure, unspecified; G93.41 Metabolic encephalopathy; I13.10 Hypertensive heart and chronic kidney disease without heart failure, with stage 1 through stage 4 chronic kidney disease, or unspecified chronic kidney disease; I85.00 Esophageal varices without bleeding; D69.59 Other secondary thrombocytopenia; Z68.41 Body mass index [BMI] 40.0-44.9, adult; K74.60 Unspecified cirrhosis of liver; K75.81 Nonalcoholic steatohepatitis (NASH); N18.3 Chronic kidney disease, stage 3 (moderate); R13.10 Dysphagia, unspecified; E87.5 Hyperkalemia; E66.01 Morbid (severe) obesity due to excess calories; M19.90 Unspecified osteoarthritis, unspecified site; E86.0 Dehydration; D64.9 Anemia, unspecified; I95.9 Hypotension, unspecified; E11.65 Type 2 diabetes mellitus with hyperglycemia; L93.0 Discoid lupus erythematosus; J45.909 Unspecified asthma, uncomplicated; Z66 Do not resuscitate; Z91.81 History of falling
CPT/HCPCS: 36415; 36416; 36430; 70450; 71010; 72125; 74000; 76705; 80048; 80053; 80202; 82105; 82140; 82550; 82553; 82805; 83605; 83735; 84484; 85025; 86850; 86900; 86901; 87040; 93005; 93306; 94640; 96360; A4216; G8978-GP-CK; G8979-GP-CI; G8996-GN-CI; G8997-GN-CI; J2060; J3370; J7070; J7620; P9016; P9047; S0028

== ENCOUNTER 2017-09-16 18:59 | Inpatient (IN) | payer MEDICARE, MEDICAID ==
[2017-09-16 20:15] LABS: Hemoglobin 9.9 g/dL (12.0-16.0); Mean Corpuscular HGB CONC 30.5 g/dL (32.0-36.0); Mean Corpuscular Hemoglobin 24.7 pg (27.0-31.0); Mean Corpuscular Volume 81.1 fl (81.0-99.0); Mean Platelet Volume 18.6 fL (7.4-10.4); Platelet Count 45 thou/uL (130-400); RBC Distribution Width 17.3 % (11.5-14.5); Red Blood Cell (RBC) Count 4.01 mill/uL (4.20-5.40); White Blood Cell (WBC) Count 1.7 thou/uL (4.8-10.8)
--- NOTE | 2017-09-16 20:17 | RAD ---
UPRIGHT CHEST ONE VIEW: History: 67-year-old female with cough and history of multiple falls. FINDINGS: Monitor leads overlie the chest. Heart size is borderline enlarged. No confluent pneumonia, overt lsibet ma, or pleural effusion. No pneumothorax. Stable from prior study, 09-06-17. IMPRESSION: Stable borderline cardiomegaly and some increased markings bilaterally but no confluent pneumonia or other significant acute intrathoracic disease. POS: GAYLE
[2017-09-16 20:30] LABS: Anion Gap 12 mmol/L (10-20); BUN (Urea Nitrogen) 25 mg/dL (9.8-20.1); CK (CPK) 38 U/L (29-168); Calc. Creatinine Clearance 0 mL/min (70-130); Calcium 9.7 mg/dL (7.8-10.44); Carbon Dioxide 18 mmol/L (23-31); Chloride 120 mmol/L (98-107); Estimated GFR-MDRD 31; Glucose 85 mg/dL (80-115); Potassium 4.6 mmol/L (3.5-5.1); Sodium 145 mmol/L (136-145)
[2017-09-16 20:34] LABS: CKMB 4.8 ng/mL (0-6.6); Troponin I 0.021 ng/mL (< 0.028)
--- NOTE | 2017-09-16 20:36 | CT ---
HEAD CT WITHOUT IV CONTRAST: History: 67-year-old female with altered mental status and multiple falls. FINDINGS: Mild atrophy. No focal mass or midline shift. No intra or extraaxial hemorrhage. Sinuses and mastoids are clear of acute process. Stable left frontal scalp soft tissue mass. Unchanged from 09-06-17. IMPRESSION: No acute intracranial process. No mass or bleeding. Stable from prior study. POS: H
[2017-09-16 20:37] LABS: Band 8 % (5-11); Eosinophils 1 % (0-10); Hypochromia SLIGHT = 6-15 cells (100X) (0-5/hpf); Lymphocytes 19 % (21-51); MDiff Complete? YES; Microcytosis SLIGHT = 6-15 cells (100X) (0-5/hpf); Monocytes 4 % (0-10); Neutrophil 68 % (42-75); Ovalocytes SLIGHT = 2-5 cells (100X) (0-1/hpf); PLT Morphology Comment Appears Decreased; Target Cells SLIGHT = 2-5 cells (100X) (0-1/hpf)
[2017-09-16] MEDS ORDERED: Norepinephrine 8 MG/0.9% NS 250 ML ONE (22:17)
[2017-09-16] MEDS ORDERED: Piperacillin/Tazobactam 4.5 GM in Sodium Chloride 0.9% 100 ML IVPB SCH (23:15)
[2017-09-16 23:16] LABS: Bilirubin Negative (Negative); Blood, Urine Negative (Negative); Clarity TURBID (Clear); Glucose, Urine (Dipstick) Negative (Negative); Leukocyte Negative (Negative); Nitrite Negative (Negative); Protein, Urine (Dipstick) Trace mg/dL (Neg-Trace); Specific Gravity, Urine 1.025 (1.002-1.036); Urobilinogen 0.2 mg/dL (0.2-1.0)
[2017-09-17] MEDS ORDERED: Ondansetron HCl/PF 4 MG/2 ML Vial ONE ×2 (00:45)
[2017-09-17 00:48] LABS: Lactic Acid 1.8 mmol/L (0.5-2.2)
--- NOTE | 2017-09-17 00:59 | PDOC.EVN ---
Event Note - Event Note Event Note: [id number] H&P Dictated 1. Altered mental status 2. sepsis 3. hypotension 4. pancytopenia plan: see orders
[2017-09-17] MEDS ORDERED: PROVENTIL INHALER 6.7 G (200 INHALATIONS) INH PRN (01:25)
[2017-09-17] MEDS ORDERED: HumaLOG 300 UNITS/3 ML VIAL SC PRN ×2 (01:29)
[2017-09-17] MEDS ORDERED: Dextrose 5% in Water 1,000 ML IV PRN (01:29)
[2017-09-17] MEDS ORDERED: Norepinephrine 8 MG/0.9% NS 250 ML IVPB SCH (01:30)
[2017-09-17] MEDS ORDERED: Vancomycin HCl 1.5 GM in Sodium Chloride 0.9% 250 ML 300 ML IVPB SCH (02:00)
[2017-09-17] MEDS: Dextrose 5 %-0.45 % NaCl 1,000 ML IV SCH ×2 (02:27→18:18)
[2017-09-17 03:50] VITALS: BMI 43.2
[2017-09-17] MEDS: MEROPENEM 1 GM/50 ML 1 GM in Premix Bag 1 BAG IVPB SCH ×2 (05:47→14:47)
[2017-09-17] MEDS ORDERED: Meropenem 1 GM in Sodium Chloride 0.9% 100 ML IVPB SCH (06:00)
--- NOTE | 2017-09-17 06:40 | HP ---
DATE OF ADMISSION: 09/16/2017 CHIEF COMPLAINT: Confusion. HISTORY OF PRESENT ILLNESS: The patient is 67-year-old female with past medical history of nonalcoho lic hepatitis, cirrhosis, diabetes mellitus type 2, recently got discharged from the hospital on 08/24 with diagnosis on hepatic encephalopathy. Patient was brought back to the ER because of the c onfusion. According to the family members, and from the ED physician and from the ED nurse that the patient is currently confused. Patient was brought to the ER because of the confusion. Patient is h aving falls since her discharge from the hospital and having confusion, so patient was brought to the ER. Upon ER arrival, patient was hypotensive with blood pressure of 50/20, so patient was given flu id bolus, and the patient had central line placed and patient was started on Levophed. Patient is cu rrently getting admitted to the ICU. Denies any chest pain. Denies any palpations. PAST MEDICAL HISTORY: As per HPI. PAST SURGICAL HISTORY: Positive for tubal ligation, cataract removal. SOCIAL HISTORY: Patient is lethargic, unavailable at this time. ALLERGIES: MORPHINE. MEDICATIONS: Reviewed. FAMILY HISTORY: Unavailable from the patient as the patient is currently lethargic. REVIEW OF SYSTEMS: Unavailable from the patient as the patient is currently lethargic. PHYSICAL EXAMINATION: CONSTITUTIONAL/VITAL SIGNS: At the time of H and P performed, blood pressure is 101/60, pulse oximet ry 98%, heart rate 60. GENERAL: The patient appears lethargic. HEENT: Anterior naris patent. Oral cavity, poor dentition. NECK: Supple, no JVD. CARDIOVASCULAR SYSTEM: S1, S2 present. Regular rate and rhythm, no murmurs, no rubs, no gallops. RESPIRATORY SYSTEM: No wheezing, no rhonchi. Breath sounds present bilaterally. GASTROINTESTINAL: Abdomen is soft, nontender, no guarding, no organomegaly, no masses felt. GENITOURINARY: No suprapubic tenderness. No angle tenderness. INTEGUMENTARY: No obvious rashes seen. MUSCULOSKELETAL: No obvious deformities seen. CRANIAL NERVE SYSTEM: Lethargic, not following commands. PSYCHIATRIC: Mood is appropriate at this time. Mood is calm at this time. LABORATORY DATA: At the time of H and P performed, white count 1.7, hemoglobin 9.9, platelet count i s 45. BMP shows sodium 145, potassium 4.6, chloride 120, CO2 is 18, BUN of 71, creatinine 1.96. Bas shawna creatinine is around 1.85 to 2.3, lactic acid 2.3, troponin 0.021, BNP 54.7. UA specific gravi ty 1.025. ASSESSMENT AND PLAN: Patient is 67-year-old female now admitted to the hospital because of confusion and hypotension. 1. Sepsis, etiology unclear. Plan to start patient on broad-spectrum antibiotics. Plan to admit jessica john to the intensive care unit. Plan to monitor blood pressure closely. Plan to start patient on intravenous Levophed and we will monitor blood pressure closely. 2. Pancytopenia might be secondary to acidosis. Monitor counts. No need for transfusions at this t christiano. 3. Hypotension. Continue blood pressure meds. 4. Altered mental status. Ammonia levels in the range, but we will continue lactulose. We will mon itor mental status closely. We will do CT head, it was unremarkable at this time. We will consult richard siddiqi to evaluate the patient. 5. History of cirrhosis, stable at this time. Case was discussed in detail with the patient and ED physician.
[2017-09-17] MEDS: Dextrose 50% Abboject 50 ML SYRINGE SLOW IVP PRN ×2 (08:33→20:59)
[2017-09-17] MEDS: Rifaximin 550 MG TAB PO SCH ×2 (08:36→21:02)
[2017-09-17] MEDS: FLUoxetine HCl 10 MG CAP PO SCH (08:36)
[2017-09-17] MEDS: Multivit, Therapeutic 1 TAB PO SCH (08:36)
[2017-09-17] MEDS: Allopurinol 100 MG TAB PO SCH (08:36)
[2017-09-17] MEDS: Aspirin 81 mg Enteric Coated Tablet PO SCH (08:36)
[2017-09-17] MEDS: Ferrous Sulfate 325 MG TAB PO SCH ×2 (08:36→18:18)
[2017-09-17] MEDS ORDERED: Non-Formulary Item 1 EACH (Insulin Glargine,Hum.Rec.Anlog [Lantus] 10 UNITS) SQ SCH (09:00)
--- NOTE | 2017-09-17 09:20 | PDOC.PN ---
- Subjective Encounter Start Date: 09/17/17 Encounter Start Time: 09:18 Subjective: confused - Objective MAR Reviewed: Yes Vital Signs & Weight: Vital Signs (12 hours) Temp Pulse Resp Pulse Ox 09/17/17 08:00 98.6 F 09/17/17 06:00 97.8 F 09/17/17 04:00 96.1 F L 09/17/17 02:00 96.1 F L 09/17/17 01:56 96.1 F L 63 17 97 Weight Weight 228 lb 9.91 oz Most Recent Monitor Data Heart Rate from ECG 85 NIBP 102/49 NIBP BP-Mean 65 Respiration from ECG 29 SpO2 96 I&O: 09/16/17 09/17/17 09/18/17 06:59 06:59 06:59 Intake Total 624 Output Total 43 50 Balance 581 -50 Result Diagrams: 09/16/17 19:47 09/16/17 19:47 Additional Labs: Accuchecks 09/17/17 09/17/17 08:31 07:16 POC Glucose 62 L 68 L Phys Exam - Physical Examination Constitutional: NAD Neck: no JVD Respiratory: clear to auscultation bilateral Cardiovascular: RRR, no significant murmur Gastrointestinal: soft, positive bowel sounds Musculoskeletal: edema present Dx/Plan (1) LYNDA (acute kidney injury) Code(s): N17.9 - ACUTE KIDNEY FAILURE, UNSPECIFIED Status: Acute Comment: 1.4x in ,now in the 3-4+ range. prerenal aoztemia vs hepatorenal syndrome. poor outcome likely. Back from 4.x to 1.85 today. Baseline around 1.6 (2) Hepatic encephalopathy Code(s): K72.90 - HEPATIC FAILURE, UNSPECIFIED WITHOUT COMA Status: Acute Comment: ammonia better 09/08, GI on board, more arousable, but certainly not coherent. Nursing reports better right now. NH3 down to 47 then 29, and now very much awake and alert. Ox3. will follow up with pt and GI this afternoon, CCM at present. On regular diet now. home when cleared by GI (3) CKD (chronic kidney disease) stage 3, GFR 30-59 ml/min Status: Chronic (4) GERD (gastroesophageal reflux disease) Code(s): K21.9 - GASTRO-ESOPHAGEAL REFLUX DISEASE WITHOUT ESOPHAGITIS Status: Chronic Qualifiers: Esophagitis presence: esophagitis presence not specified Qualified Code(s) : K21.9 - Gastro-esophageal reflux disease without esophagitis (5) HTN (hypertension) Code(s): I10 - ESSENTIAL (PRIMARY) HYPERTENSION Status: Chronic Qualifiers: Hypertension type: essential hypertension (6) Non-alcoholic cirrhosis Status: Chronic Comment: due to CERON (7) Hypoglycemia associated with type 2 diabetes mellitus Code(s): E11.649 - TYPE 2 DIABETES MELLITUS WITH HYPOGLYCEMIA WITHOUT COMA Status: Resolved (8) Sepsis with acute organ dysfunction Code(s): A41.9 - SEPSIS, UNSPECIFIED ORGANISM; R65.20 - SEVERE SEPSIS WITHOUT SEPTIC SHOCK Status: Ruled-out Comment: not sepsis, ruled out. suspect hepatic encephalopathy and AMs with dehydration and LYNDA. No evidence of infection at this point. - Plan C&S pending, cont iv antibx -: stat lab- cbc, INR, CMP, Lactate -: cont lactulose -: on levophed at present * .
[2017-09-17 09:44] LABS: INR-International Normal Ratio 1.4; Prothrombin Time 17.9 SEC (12.0-14.7)
[2017-09-17 09:47] LABS: Hemoglobin 8.3 g/dL (12.0-16.0); Mean Corpuscular HGB CONC 31.2 g/dL (32.0-36.0); Mean Corpuscular Hemoglobin 25.1 pg (27.0-31.0); Mean Corpuscular Volume 80.5 fl (81.0-99.0); Mean Platelet Volume 7.3 fL (7.4-10.4); Platelet Count 56 thou/uL (130-400); RBC Distribution Width 17.4 % (11.5-14.5); Red Blood Cell (RBC) Count 3.29 mill/uL (4.20-5.40); White Blood Cell (WBC) Count 3.6 thou/uL (4.8-10.8)
[2017-09-17 09:48] LABS: #Eosinphils 0.1 thou/uL (0.0-0.7); #Lymphocytes 0.3 thou/uL (1.20-3.40); #Monocytes 0.5 thou/uL (0.11-0.59); #Neutrophils 2.7 thou/uL (1.40-6.50); %Basophils 0.3 % (0.0-1.0); %Eosinophils 1.5 % (0.0-10.0); %Lymphocytes 9.5 % (21.0-51.0); %Monocytes 13.6 % (0.0-10.0)
[2017-09-17 09:59] LABS: ALT (SGPT) 26 U/L (8-55); AST (SGOT) 38 U/L (5-34); Albumin 2.9 g/dL (3.4-4.8); Alkaline Phosphatase 261 U/L (40-150); Anion Gap 10 mmol/L (10-20); BUN (Urea Nitrogen) 28 mg/dL (9.8-20.1); Bilirubin, Total 0.7 mg/dL (0.2-1.2); Calc. Creatinine Clearance 36 mL/min (70-130); Calcium 8.8 mg/dL (7.8-10.44); Carbon Dioxide 17 mmol/L (23-31); Chloride 122 mmol/L (98-107); Estimated GFR-MDRD 24; Globulin 2.7 g/dL (2.4-3.5); Glucose 103 mg/dL (80-115); Potassium 4.6 mmol/L (3.5-5.1); Protein, Total 5.6 g/dL (6.0-8.3); Sodium 144 mmol/L (136-145)
[2017-09-17] MEDS: Betamethasone Val 0.1% Lotion 60 ML BOT TOP SCH ×2 (10:33→21:02)
[2017-09-17 10:41] LABS: Bite Cells SLIGHT = 2-5 cells (100X) (0-1/hpf); Hypochromia MODERATE=16-30 cells (100X) (0-5/hpf); MDiff Complete? YES; Microcytosis SLIGHT = 6-15 cells (100X) (0-5/hpf); Ovalocytes MODERATE= 6-15 cells (100X) (0-1/hpf); PLT Morphology Comment Appears Decreased; Polychromasia MODERATE = 3-4 cells (100X) (0-2/hpf); Schistocytes SLIGHT = 2-5 cells (100X) (0-1/hpf); Target Cells SLIGHT = 2-5 cells (100X) (0-1/hpf)
[2017-09-17 13:32] LABS: Lactic Acid 1.5 mmol/L (0.5-2.2)
[2017-09-17] MEDS ORDERED: Acetaminophen 650 MG/20.3 ML UDCUP PO PRN (19:40)
[2017-09-17] MEDS: Meropenem 1 GM, Admixture Fee 1 EACH in Sterile Water 20 ML IVPB SCH (22:04)
[2017-09-18] MEDS: Dextrose 50% Abboject 50 ML SYRINGE SLOW IVP PRN ×7 (00:05→13:26)
[2017-09-18] MEDS: Meropenem 1 GM, Admixture Fee 1 EACH in Sterile Water 20 ML IVPB SCH ×3 (05:57→18:58)
[2017-09-18] MEDS: Dextrose 5 %-0.45 % NaCl 1,000 ML IV SCH (06:02)
[2017-09-18] MEDS: Dextrose 10% in Water 1,000 ML IV SCH ×3 (06:50→18:43)
[2017-09-18] MEDS: Ferrous Sulfate 325 MG TAB PO SCH ×2 (08:19→16:10)
[2017-09-18] MEDS: Allopurinol 100 MG TAB PO SCH (08:20)
[2017-09-18] MEDS: Rifaximin 550 MG TAB PO SCH ×2 (08:20→18:58)
[2017-09-18] MEDS: Multivit, Therapeutic 1 TAB PO SCH (08:20)
[2017-09-18] MEDS: Aspirin 81 mg Enteric Coated Tablet PO SCH (08:20)
[2017-09-18] MEDS: Betamethasone Val 0.1% Lotion 60 ML BOT TOP SCH ×2 (08:20→19:19)
[2017-09-18] MEDS: FLUoxetine HCl 10 MG CAP PO SCH (08:20)
--- NOTE | 2017-09-18 10:03 | PDOC.PN ---
- Subjective Encounter Start Date: 09/18/17 Encounter Start Time: 10:01 -: non-verbal - Objective Resuscitation Status: Resuscitation Status DNR:Do Not Resuscitate MAR Reviewed: Yes Vital Signs & Weight: Vital Signs (12 hours) Temp Pulse Resp BP Pulse Ox 09/18/17 08:24 97.5 F L 09/18/17 08:00 94.8 F L 72 22 H 90/55 L 97 09/18/17 04:00 96.9 F L 70 16 123/78 97 09/18/17 00:00 97.5 F L 73 20 112/71 96 Weight Weight 228 lb 9.91 oz Most Recent Monitor Data Heart Rate from ECG 81 NIBP 98/51 NIBP BP-Mean 59 Respiration from ECG 21 SpO2 92 I&O: 09/17/17 09/18/17 09/19/17 06:59 06:59 06:59 Intake Total 624 2185.7 Output Total 43 325 Balance 581 1860.7 Result Diagrams: 09/17/17 09:28 09/17/17 09:28 Additional Labs: Accuchecks 09/18/17 09/18/17 09/18/17 08:27 08:10 06:00 POC Glucose 162 H 56 L* 52 L* 09/18/17 09/18/17 09/17/17 03:14 00:02 22:06 POC Glucose 55 L* 64 L 75 09/17/17 09/17/17 09/17/17 20:31 15:39 12:55 POC Glucose 60 L 74 105 09/17/17 11:28 POC Glucose 67 L Phys Exam - Physical Examination Constitutional: NAD Neck: no JVD Respiratory: clear to auscultation bilateral Cardiovascular: RRR, no significant murmur Gastrointestinal: soft, positive bowel sounds Musculoskeletal: edema present Dx/Plan (1) LYNDA (acute kidney injury) Code(s): N17.9 - ACUTE KIDNEY FAILURE, UNSPECIFIED Status: Acute Comment: 1.4x in ,now in the 3-4+ range. prerenal aoztemia vs hepatorenal syndrome. poor outcome likely. Back from 4.x to 1.85 today. Baseline around 1.6 (2) Hepatic encephalopathy Code(s): K72.90 - HEPATIC FAILURE, UNSPECIFIED WITHOUT COMA Status: Acute Comment: ammonia better 09/08, GI on board, more arousable, but certainly not coherent. Nursing reports better right now. NH3 down to 47 then 29, and now very much awake and alert. Ox3. will follow up with pt and GI this afternoon, CCM at present. On regular diet now. home when cleared by GI (3) CKD (chronic kidney disease) stage 3, GFR 30-59 ml/min Status: Chronic (4) GERD (gastroesophageal reflux disease) Code(s): K21.9 - GASTRO-ESOPHAGEAL REFLUX DISEASE WITHOUT ESOPHAGITIS Status: Chronic Qualifiers: Esophagitis presence: esophagitis presence not specified Qualified Code(s) : K21.9 - Gastro-esophageal reflux disease without esophagitis (5) HTN (hypertension) Code(s): I10 - ESSENTIAL (PRIMARY) HYPERTENSION Status: Chronic Qualifiers: Hypertension type: essential hypertension (6) Non-alcoholic cirrhosis Status: Chronic Comment: due to CERON (7) Hypoglycemia associated with type 2 diabetes mellitus Code(s): E11.649 - TYPE 2 DIABETES MELLITUS WITH HYPOGLYCEMIA WITHOUT COMA Status: Resolved (8) Sepsis with acute organ dysfunction Code(s): A41.9 - SEPSIS, UNSPECIFIED ORGANISM; R65.20 - SEVERE SEPSIS WITHOUT SEPTIC SHOCK Status: Ruled-out Comment: not sepsis, ruled out. suspect hepatic encephalopathy and AMs with dehydration and LYNDA. No evidence of infection at this point. - Plan not taking po meds, etc- place dobhoff for lactulose, nutrition -: CMP, ammonia pending * .
[2017-09-18 10:52] LABS: ALT (SGPT) 24 U/L (8-55); AST (SGOT) 33 U/L (5-34); Albumin 2.6 g/dL (3.4-4.8); Alkaline Phosphatase 249 U/L (40-150); Anion Gap 12 mmol/L (10-20); BUN (Urea Nitrogen) 30 mg/dL (9.8-20.1); Bilirubin, Total 0.3 mg/dL (0.2-1.2); Calc. Creatinine Clearance 33 mL/min (70-130); Calcium 8.9 mg/dL (7.8-10.44); Carbon Dioxide 16 mmol/L (23-31); Chloride 120 mmol/L (98-107); Estimated GFR-MDRD 22; Globulin 2.7 g/dL (2.4-3.5); Potassium 4.6 mmol/L (3.5-5.1); Protein, Total 5.3 g/dL (6.0-8.3); Sodium 143 mmol/L (136-145)
[2017-09-18 10:59] LABS: Glucose 46 mg/dL (80-115)
[2017-09-18] MEDS ORDERED: Morphine 4 MG/ML VIAL SLOW IVP PRN (19:15)
--- NOTE | 2017-09-18 22:26 | PRG ---
DATE OF SERVICE: 09/18/2017 SUBJECTIVE: Ms. Souza was readmitted to the hospital on 09/17/2017. Her family notes that after goi ng home on 09/13/2017, she did pretty well. [place] went [place] , went to [employer] member's house on and the day after, she had a couple of falls and she came in with confusion, somnolence, concerned that she may have recurrent hepatic encephalopathy. Her blood pres sure was in the 50s/20s. She was admitted to the ICU and started on broad-spectrum antibiotics. Her ammonia supposedly came back to normal range. Her glucose was initially in the low 100s per the pat ient's family when EMS arrived at the house, but here in the hospital, it has dropped into the 50s an d 40s presently, today it has been 123 to 60. She has received 9 amps of D50 today because of this. Despite this, ammonia has been normal, was 45 on 09/16/2017 and it is 32 today. She has had repeat imaging of the brain, cultures, treated aggressively with IV fluids, dextrose, broad-spectrum antibio tics. Dr. White was going to have a feeding tube placed today, but the patient's family decided not to do that and are having other family members come from [place], and they are considering hospice in light of the fact that she has had progressive deterioration in clinical status recently. PRESENT MEDICATIONS: Tylenol elixir p.r.n. which she is not receiving, allopurinol p.r.n. which she is not receiving, aspirin, albuterol, betamethasone topical cream p.r.n., D10 60/hour, D50 p.r.n. for hypoglycemia, ferrous sulfate, Prozac, Glucophage, Humulin, insulin sliding scale which she has not received here, meropenem, Protonix, rifaximin, and vancomycin. PHYSICAL EXAMINATION: VITAL SIGNS: Temperature is 96 on arrival here to the hospital, pulse is 79, respirations are 18-22, blood pressure 111/70. HEENT: She still has a bruise in her forehead. LUNGS: Clear. HEART: Regular rate and rhythm. ABDOMEN: Nontender. She is a little bit puffy. LABORATORY STUDIES: Otherwise, white count yesterday was 3.6, hemoglobin 8.3, platelet count 56,000. INR was 1.4 on 09/17/2017. Sodium 143, BUN and creatinine 30 and 2.62, anion gap is 7, AST and ALT are 33 and 24, alkaline phosphatase 249. ASSESSMENT: 1. 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 2. The patient was recently here in the hospital with hepatic encephalopathy which she responded alex y quickly to lactulose and Xifaxan too. 3. Hypoglycemia. She had a little bit of hypoglycemia last admission, although this resolved when s he started having feeds. It is unclear the cause of this. There have been no overt signs of infecti on. She has no acute fulminant liver failure with normal liver enzymes and INR stable. It does not appear to be any medications are causing this. The family and nurses deny use of anti-diabetic pill s or insulin. 4. Acute renal failure, improved from last admission with a creatinine of 2.62. 5. The patient's family is considering hospice care in light of her progressive deterioration in the past several months. PLAN: 1. I have discussed issues of hospice and overall disease course with extended family in the room fo r about 20 minutes. 2. I asked the nurses to increase IV fluids to 150 an hour with dextrose to get better control of he r sugar. At this time, the patient's family wants to hold off on Dobbhoff feeding tube as they state she reall y did not want it previous times. The patient has been made a DNR. Last admission, the patient's fa ignacio was continuing this. At this time, I think it is reasonable if she were to have a cardiopulmona ry arrest, I do not think she would benefit from CPR in light of her end-stage renal disease. I agre e with the broad-spectrum antibiotics. We will continue these in light of the hypoglycemia of unclea r etiology.
[2017-09-19] MEDS ORDERED: Vancomycin HCl 1 GM in Premix Bag 1 BAG IVPB SCH (02:00)
[2017-09-19] MEDS: Meropenem 1 GM, Admixture Fee 1 EACH in Sterile Water 20 ML IVPB SCH (02:47)
[2017-09-19] MEDS: Aspirin 81 mg Enteric Coated Tablet PO SCH (09:01)
[2017-09-19] MEDS: Ferrous Sulfate 325 MG TAB PO SCH (09:01)
[2017-09-19] MEDS: Allopurinol 100 MG TAB PO SCH (09:01)
[2017-09-19] MEDS: Betamethasone Val 0.1% Lotion 60 ML BOT TOP SCH (09:02)
[2017-09-19] MEDS: Rifaximin 550 MG TAB PO SCH (09:02)
[2017-09-19] MEDS: FLUoxetine HCl 10 MG CAP PO SCH (09:02)
[2017-09-19] MEDS: Multivit, Therapeutic 1 TAB PO SCH (09:02)
--- NOTE | 2017-09-19 10:46 | PRG ---
DATE OF SERVICE: 09/18/2017 SUBJECTIVE: This morning, encephalopathic and arousable. OBJECTIVE: VITAL SIGNS: Blood pressure 90/50, temperature 97, respiration 22. CHEST: Chest reveals decreased breath sounds, no wheezing. CARDIAC: Normal S1, S2. No gallops. ABDOMEN: Soft, no masses. LABORATORY DATA: Glucose 162. IMPRESSION: 1. Nonalcoholic cirrhosis. 2. Encephalopathy. 3. Electrolyte imbalance. PLAN: She is still on broad-spectrum antibiotics. I would deescalate. No evidence of any sepsis at this time. Pulmonary will follow at a distance since she is a DNR.
--- NOTE | 2017-09-19 15:07 | DIS ---
DATE OF ADMISSION: 09/16/2017 DATE OF DISCHARGE: 09/19/2017 PRIMARY CARE PROVIDER: Fco Foster M.D. DISCHARGE DISPOSITION: Discharged to [facility]. FINAL DIAGNOSES: Encephalopathy, nonalcoholic cirrhosis of the liver, hepatic failure, pancytopenia, acute renal failure, hypotension, diabetes mellitus type 2, discoid lupus, anemia, thrombocytopenia. DISCHARGE MEDICINES: None. CODE STATUS: DNR. PENDING AT THE TIME OF DISCHARGE: Nothing. HOSPITAL COURSE: A lady with multiple medical problems who presented with confusion, diagnosis of se psis was made. She was started on broad spectrum antibiotics. Lactulose was ordered. Her blood and urine cultures were no growth. LABORATORY: White count 1.7 and 3.6, hemoglobin 9.9 and 8.3, platelet count 45,000 and 56,000. INR 1.4. Sodium 145, potassium 4.6, chloride 120, carbon dioxide 18, BUN 25, creatinine 1.96. Lactic ac id 2.3. The patient was treated with IV fluids. Follow up BUN and creatinine 28 and 2.4. Her blood sugars remained low. She received D10. Plans were made for feeding tube. Discussions were initiated with the family, the family decided it was time to stop all therapies. Th e patient never became alert during her hospital stay. The decision was made to remove all therapy. [facility] has seen the patient and accepted her in transfer. CONSULTATIONS: Dr. Butch Griffith and Dr. Delmar Natarajan. PROCEDURES: None. CONDITION AT THE TIME OF DISCHARGE: Encephalopathic, blood pressure 103/63, pulse 82, respirations 1 8, temperature 98.9. Prognosis dismal. The patient is being discharged to inpatient hospice to [facility] ([place]).
[2017-09-19 15:54] VITALS: BP 133/75; TEMP 98.5
--- NOTE | 2017-09-19 18:12 | PRG ---
DATE OF SERVICE: 09/19/2017 SUBJECTIVE: Ms. Souza admitted last night and decided to pursue comfort measures with her recurrent falls, deteriorating clinical status and progressive decline in functional status. For time, her glucose is holding steady on D5 normal saline at 150 an hour, but after meeting the fam jose m, I decided to pursue more palliative care and comfort measures. Today, it seems that she is sheng g to be either doing inpatient hospice here in the hospital or across the street later today. Discus sed this with patient's daughter who is in charge of decision making and also patient's nurse today. If she remains in the hospital, continue to follow along.
--- NOTE | 2017-10-05 20:53 | EKG ---
Test Reason : Blood Pressure : / mmHG Vent. Rate : 054 BPM Atrial Rate : 054 BPM P-R Int : 182 ms QRS Dur : 080 ms QT Int : 554 ms P-R-T Axes : 021 091 051 degrees QTc Int : 525 ms Sinus bradycardia Rightward axis Nonspecific T wave abnormality Prolonged QT Abnormal ECG Confirmed by HUMA JIMENES, DALILA ([id number]), acquisition editor NANCI GOMEZ ([id number]) on 10/05/2017 8:52:42 PM Referred By: Confirmed By:DALILA FINN MD
== END 2017-09-19 16:42 | disposition hospice, inpatient (51) | DRG 682 ==
LOC: ERS 18:59 → CCU 09-17 00:03 → T4-B 09-17 19:46
PROVIDERS: ADMIT Internal Medicine; ATTEND Internal Medicine
PROC: 06HY33Z Insertion of Infusion Device into Lower Vein, Percutaneous Approach (ICD-10-PCS; principal; 2017-09-17)
DX: N17.9 Acute kidney failure, unspecified (principal); G93.41 Metabolic encephalopathy; D61.818 Other pancytopenia; I95.9 Hypotension, unspecified; D69.6 Thrombocytopenia, unspecified; E11.22 Type 2 diabetes mellitus with diabetic chronic kidney disease; E11.649 Type 2 diabetes mellitus with hypoglycemia without coma; N18.3 Chronic kidney disease, stage 3 (moderate); L93.0 Discoid lupus erythematosus; K74.60 Unspecified cirrhosis of liver; K72.90 Hepatic failure, unspecified without coma; Z66 Do not resuscitate; Z51.5 Encounter for palliative care; K21.9 Gastro-esophageal reflux disease without esophagitis; I12.9 Hypertensive chronic kidney disease with stage 1 through stage 4 chronic kidney disease, or unspecified chronic kidney disease; E86.0 Dehydration
CPT/HCPCS: 36415; 36416; 36556; 51702; 70450; 71010; 80048; 80053; 81003; 82140; 82533; 82553; 83605; 83880; 84484; 85025; 85610; 87040; 87086; 93005; 94760; 96365; 96366; 96375; A4216; J1610; J2185; J2270; J2405; J2543; J3370; J7050